=== PATIENT | female | born 1990 | race Caucasian/White ===

== ENCOUNTER → 2016-10-27 | Day surgery (SDC) | payer OTHER ==
[~2016-10-27] VITALS: Ht 157.4 cm; Wt 92.5 kg
[~2016-10-27] MED LIST: ACULAR 3ML 3 ML5 ML OPH; ALBUTEROL0.09 MG/A1 INH; AMERGE2.5 MG PO; AMOXICILLIN500 MG PO; ANAPROX DS550 MG PO; ANTIBIOTIC; AUGMENTIN 875 M1 TAB PO; BACTRIM DS 8001 TA1 PO; BACTROBAN CREAM15 GM T; BIAXIN500 MG PO; BIRTH CONTROL IMPLAN; BLOOD PRESSURE MED PO; BLOOD PRESSURE PILL; BUSPAR5 MG PO; CELEXA20 MG PO; CIPRO250 MG PO; CIPRO500 MG PO; CIPRODEX 0.3%-7.5 ML OT; CIPROFLOXACIN500 MG PO; CLEOCIN150 MG PO; DEPO PROVER150 MG/M1 IM; DEPRESSION MED; DO NOT PROFILE T1 EA; FLEXERIL10 MG PO; FLONASE0.05 MG/AC NS; GRALISE300 M1 PO; HYDROCODONE BIT1 T11 PO; IMITREX100 MG PO; KEFLEX500 MG PO; LOTRIMIN1% TP; MACROBID100 M1 PO; MAXALT10 MG PO; MEDROL DOSEPAK4 MG PO; MOTRIN800 MG PO; NAPROSYN500 MG PO; NEURONTIN600 MG PO; NKHM; NKHM PO; NORCO 325 MG-51 TAB PO; NORCO 5-325 TA1 EACH PO; OFLOXACIN OTIC5 ML OT; OMEPRAZOLE40 MG PO; Orphenadrine C100 MG PO; PEN-VEE K500 MG PO; PEPTO-BISMOL262 M1; PERCOCET 325 MG1 TA4 PO; PERCOCET 325 MG1 TA7 PO; PHENERGAN25 M1 PO; PHENERGAN25 M3 PO; PREDNISONE10 MG PO; PRILOSEC20 M1 PO; PROVENTIL0.09 MG/AC IH; PYRIDIUM200 MG PO; ROBAXIN-750750 MG PO; SKYLA1 EACH IY; STOMACH MED; TESSALON PERLE200 MG PO; TOBREX OPHTH S2.5 ML OPH; TORADOL10 MG PO; TRAMADOL HCL50 MG PO; ULTRAM50 MG PO; VENTOLIN H0.09 MG/AC INH; VERELAN SR 240240 MG PO; VIBRA-TAB100 MG PO; VOLTAREN50 M1 PO; ZANTAC150 MG PO; ZITHROMAX Z PA250 MG PO; ZITHROMAX Z-PA250 MG PO; ZITHROMAX250 MG PO; ZOFRAN ODT4 MG SL; ZOFRAN ODT8 MG PO; ZOFRAN4 MG PO; ZYRTEC10 M1 PO; Zofran4 MG PO
--- NOTE | ~2016-10-27 | O ---
[place], [place] OPERATIVE NOTE NAME: CECI BARRIOS UNIT #: [id number] ROOM: DOCTOR: DIA SALAS MD BIRTHDATE: [birth year] DOS: 10/27/2016 GASTROENDOSCOPIC REPORT SUBJECTIVE: The patient is a 26-year-old who has presented with chief complaint of epigastric distress, nausea, vomiting. ALLERGIES: No known medication. FAMILY HISTORY: Father with colonic carcinoma. PAST SURGICAL HISTORY: Lower back pain and back surgery, tonsillectomy, adenoidectomy, wisdom teeth extraction. PAST MEDICAL HISTORY: Diabetes, gastritis. SOCIAL HISTORY: Nonsmoker, nonalcohol consumer; however, drinking 2 carbonated soda per day. PROCEDURE: Today's procedure part of investigation is panendoscopy plus biopsy. PREMEDICATION: Versed and Diprivan. SCOPE: Olympus forward-viewing gastroscope Q10 video. REPORT: After putting the patient in the left lateral position and after application of lubricant to the scope, the scope was introduced. Thereafter, under direct visualization, I advanced through the length of the esophagus without difficulty. Esophagus cervicothoracic distally carefully examined. Distal esophagitis and distal esophageal small ulcer was noticed. Small hiatal hernia identified. Gastric pouch was entered. Mild gastritis seen. Antrum was biopsied for H. pylori. Duodenal bulb, second and third part within normal limits. The patient extubated, tolerated procedure well. IMPRESSION: Distal esophageal ulcerations, small hiatal hernia, gastritis. PLAN AND DISCUSSION: We are going to start the patient on omeprazole 40 mg 1 every day, antireflux measures with elevation of the head of the bed 6 inches all time. This patient is known to be on pain medication, which would hinder gastric motility as well. Advised to be judgmental about the use of her pain medication. Follow up routinely with you in office, p.r.n. visit with us in [facility]. I thank you very much indeed for your kind referral. [place], [place] OPERATIVE NOTE NAME: CECI BARRIOS UNIT #: [id number] ROOM: DOCTOR: DIA SALAS MD BIRTHDATE: [birth year] DIA SALAS MD CM:WENDIORD:OPERATIVE NOTE 1022 1100 ESTEFANÍA SALAS MD 10/27/16 1100 interface
[2016-10-27 09:04] VITALS: BP 132/89
[2016-10-27 10:20] VITALS: BP 103/59
[2016-10-27 10:35] VITALS: BP 111/73
[2016-10-27 10:50] VITALS: BP 135/88
== END | disposition home or self-care (01) ==
LOC: SDC 10-22 08:00
DX: K29.50 Unspecified chronic gastritis without bleeding (principal); K22.10 Ulcer of esophagus without bleeding; K44.9 Diaphragmatic hernia without obstruction or gangrene; E11.9 Type 2 diabetes mellitus without complications; Z80.0 Family history of malignant neoplasm of digestive organs; J45.909 Unspecified asthma, uncomplicated; F41.9 Anxiety disorder, unspecified; F32.9 Major depressive disorder, single episode, unspecified; G43.909 Migraine, unspecified, not intractable, without status migrainosus; M41.9 Scoliosis, unspecified; Z82.49 Family history of ischemic heart disease and other diseases of the circulatory system; Z82.3 Family history of stroke; Z83.3 Family history of diabetes mellitus

== ENCOUNTER 2018-02-07 10:36 | Emergency (ER) | payer OTHER ==
[~2018-02-07] VITALS: Ht 157.4 cm; Wt 87.5 kg
[2018-02-07 11:00] LABS: BASO # 0.1 10*3/uL (0.0-0.1); BASO % 0.5 % (0.0-1.0); EOS % 0.3 % (1.0-4.0); HEMATOCRIT 41.8 % (37.0-47.0); HEMOGLOBIN 13.3 g/dl (12.0-16.0); LYMPH # 1.7 10*3/uL (1.3-4.4); LYMPH % 13.1 % (27.0-41.0); MEAN CELL VOLUME 87.4 fl (81.0-99.0); MEAN CORPUSCULAR HGB 27.8 pg (27.0-31.0); MEAN CORPUSCULAR HGB CONC 31.8 g/dl (33.0-37.0); MEAN PLATELET VOLUME 8.5 fl (9.6-12.3); MONO # 0.5 10*3/uL (0.1-1.0); MONO % 4.3 % (3.0-9.0); NEUT # 10.3 10*3/uL (2.3-7.9); NEUT % 81.6 % (47.0-73.0); PLATELET COUNT AUTOMATED 452 10*3/uL (130-400); RED BLOOD COUNT 4.78 10*6/uL (4.10-5.10); RED CELL DISTRI WIDTH 14.4 % (0-14.5); WHITE BLOOD COUNT 12.6 10*3/uL (4.8-10.8)
[2018-02-07 11:10] LABS: ACT PARTIAL THROMBO TIME 25.9 SECONDS (20.8-31.5); INTERNATIONAL NORM RATIO 1.1 (2.0-3.5)
[2018-02-07 11:11] LABS: BILIRUBIN NEGATIVE (NEGATIVE); BLOOD NEGATIVE (NEGATIVE); CLARITY SL CLOUDY (CLEAR); COLOR YELLOW (YELLOW); GLUCOSE NEGATIVE (NEGATIVE); KETONE NEGATIVE (NEGATIVE); LEUKO ESTERASE NEGATIVE (NEGATIVE); NITRITE NEGATIVE (NEGATIVE); SPECIFIC GRAVITY >= 1.030 (1.005-1.030); UROBILINOGEN 0.2 E.U./dl (0.2-1.0)
[2018-02-07 11:15] LABS: ALKALINE PHOSPHATASE 87 U/L (45-117); BUN 6 mg/dl (7-24); CHLORIDE 108 mmol/L (98-107); CREATININE 0.87 mg/dL (0.55-1.02); LIPASE 146 U/L (73-393); SGOT/AST 7 IU/L (3-35); SGPT/ALT 15 U/L (12-78); SODIUM 139 mmol/L (136-145); TOTAL PROTEIN 8.2 gm/dL (6.4-8.2)
[2018-02-07 11:21] LABS: BACTERIA TRACE; EPITHELIAL CELLS 16-20; RBC 0-2 rbc/hpf (0-2); WBC 16-20 wbc/hpf (0-5)
[2018-02-07] MEDS ORDERED: Zofran4 MG SL (13:07)
[2018-02-07] MEDS ORDERED: MIRALAX17 GM PO (13:07)
[2018-03-07] MEDS ORDERED: AMBIEN10 M1 PO (14:28)
[2018-03-08] MEDS ORDERED: Zofran4 MG SL (16:09)
[2018-03-08] MEDS ORDERED: NORCO 5-325 TA1 EACH PO (16:09)
== END 2018-02-07 13:45 | disposition home or self-care (01) ==
LOC: ED 10:36
PROVIDERS: Nurse Practitioner Family
DX: R10.32 Left lower quadrant pain (principal); K59.00 Constipation, unspecified; Z79.899 Other long term (current) drug therapy

== ENCOUNTER 2018-06-16 15:50 | Emergency (ER) | payer OTHER ==
[~2018-06-16] VITALS: Ht 157.4 cm; Wt 89.8 kg
[~2018-06-16 15:50] MED LIST changes: +AMBIEN10 M1 PO; +MIRALAX17 GM PO; +Zofran4 MG SL
[2018-06-16] MEDS ORDERED: NAPROSYN500 MG PO (16:05)
[2018-06-16] MEDS ORDERED: CHLORZOXAZONE500 M2 PO (16:05)
== END 2018-06-16 17:14 | disposition home or self-care (01) ==
LOC: ED 15:50
DX: S13.9XXA Sprain of joints and ligaments of unspecified parts of neck, initial encounter (principal); S70.01XA Contusion of right hip, initial encounter; K21.9 Gastro-esophageal reflux disease without esophagitis; I10 Essential (primary) hypertension; E66.9 Obesity, unspecified; Z79.899 Other long term (current) drug therapy; W01.0XXA Fall on same level from slipping, tripping and stumbling without subsequent striking against object, initial encounter; Y93.89 Activity, other specified; Y92.89 Other specified places as the place of occurrence of the external cause; Y99.8 Other external cause status

== ENCOUNTER 2018-07-05 12:24 | Emergency (ER) | payer OTHER ==
[~2018-07-05] VITALS: Ht 157.4 cm; Wt 89.8 kg
[~2018-07-05 12:24] MED LIST changes: +CHLORZOXAZONE500 M2 PO
[2018-07-05 13:20] LABS: BASO % 0.3 % (0.0-1.0); EOS % 0.1 % (1.0-4.0); HEMATOCRIT 40.2 % (37.0-47.0); HEMOGLOBIN 12.8 g/dl (12.0-16.0); LYMPH # 1.7 10*3/uL (1.3-4.4); MEAN CELL VOLUME 84.1 fl (81.0-99.0); MEAN CORPUSCULAR HGB 26.8 pg (27.0-31.0); MEAN CORPUSCULAR HGB CONC 31.8 g/dl (33.0-37.0); MONO # 0.8 10*3/uL (0.1-1.0); MONO % 4.9 % (3.0-9.0); NEUT # 12.8 10*3/uL (2.3-7.9); NEUT % 83.2 % (47.0-73.0); PLATELET COUNT AUTOMATED 579 10*3/uL (130-400); RED BLOOD COUNT 4.78 10*6/uL (4.10-5.10); RED CELL DISTRI WIDTH 14.7 % (0-14.5); WHITE BLOOD COUNT 15.3 10*3/uL (4.8-10.8)
[2018-07-05 13:34] LABS: ALBUMIN 3.6 gm/dl (3.1-4.5); ALKALINE PHOSPHATASE 100 U/L (45-117); BUN 9 mg/dl (7-24); CHLORIDE 113 mmol/L (98-107); CREATININE 1.12 mg/dL (0.55-1.02); LIPASE 94 U/L (73-393); POTASSIUM 3.2 mmol/L (3.5-5.1); SGOT/AST 12 IU/L (3-35); SGPT/ALT 29 U/L (12-78); SODIUM 142 mmol/L (136-145); TOTAL PROTEIN 8.1 gm/dL (6.4-8.2)
[2018-07-05 15:06] LABS: BILIRUBIN NEGATIVE (NEGATIVE); BLOOD NEGATIVE (NEGATIVE); CLARITY SL CLOUDY (CLEAR); COLOR YELLOW (YELLOW); GLUCOSE NEGATIVE (NEGATIVE); KETONE NEGATIVE (NEGATIVE); LEUKO ESTERASE TRACE (NEGATIVE); NITRITE NEGATIVE (NEGATIVE); UROBILINOGEN 0.2 E.U./dl (0.2-1.0)
[2018-07-05 15:23] LABS: BACTERIA TRACE; EPITHELIAL CELLS 16-20; MUCOUS TRACE; WBC 21-30 wbc/hpf (0-5)
[2018-07-05] MEDS ORDERED: ZOFRAN4 MG PO (15:31)
== END 2018-07-05 15:50 | disposition home or self-care (01) ==
LOC: ED 12:24
PROVIDERS: Nurse Practitioner Family
DX: K52.9 Noninfective gastroenteritis and colitis, unspecified (principal); E87.6 Hypokalemia; R51 Headache; R50.9 Fever, unspecified; Z79.899 Other long term (current) drug therapy

== ENCOUNTER 2018-08-01 20:51 | Emergency (ER) | payer OTHER ==
[~2018-08-01] VITALS: Ht 157.4 cm; Wt 92.5 kg
[2018-08-01] MEDS ORDERED: ANAPROX DS550 MG PO (21:14)
[2018-08-01] MEDS ORDERED: CLINDAMYCIN HC300 MG PO (21:14)
== END 2018-08-01 21:28 | disposition home or self-care (01) ==
LOC: ED 20:51
DX: K08.89 Other specified disorders of teeth and supporting structures (principal); Z88.5 Allergy status to narcotic agent; Z79.899 Other long term (current) drug therapy

== ENCOUNTER 2018-08-20 15:04 | Emergency (ER) | payer OTHER ==
[~2018-08-20] VITALS: Ht 157.4 cm; Wt 92.5 kg
[~2018-08-20 15:04] MED LIST changes: +CLINDAMYCIN HC300 MG PO
[2018-08-20] MEDS ORDERED: AMOXICILLIN500 M2 PO (17:23)
[2018-08-20] MEDS ORDERED: PREDNISONE50 MG PO (17:23)
== END 2018-08-20 17:29 | disposition home or self-care (01) ==
LOC: ED 15:04
DX: J20.9 Acute bronchitis, unspecified (principal); Z88.6 Allergy status to analgesic agent; Z79.899 Other long term (current) drug therapy

== ENCOUNTER 2019-01-04 11:26 | Emergency (ER) | payer OTHER ==
[~2019-01-04] VITALS: Ht 157.4 cm; Wt 102.1 kg
[~2019-01-04 11:26] MED LIST changes: +AMOXICILLIN500 M2 PO; +PREDNISONE50 MG PO
[2019-01-04] MEDS ORDERED: IBUPROFEN600 MG PO (12:48)
[2019-01-04] MEDS ORDERED: CEPHALEXIN500 M1 PO (12:48)
== END 2019-01-04 12:55 | disposition home or self-care (01) ==
LOC: ED 11:26
DX: L60.0 Ingrowing nail (principal); L03.032 Cellulitis of left toe; Z88.5 Allergy status to narcotic agent; Z79.899 Other long term (current) drug therapy

== ENCOUNTER 2019-01-18 10:31 | Emergency (ER) | payer OTHER ==
[~2019-01-18] VITALS: Ht 157.4 cm; Wt 99.8 kg
[~2019-01-18 10:31] MED LIST changes: +CEPHALEXIN500 M1 PO; +IBUPROFEN600 MG PO
[2019-01-18] MEDS ORDERED: ZOFRAN4 MG PO (11:25)
[2019-01-18] MEDS ORDERED: AMOXICILLIN500 M2 PO (11:25)
== END 2019-01-18 11:38 | disposition home or self-care (01) ==
LOC: ED 10:31
DX: H66.91 Otitis media, unspecified, right ear (principal); H92.02 Otalgia, left ear; R11.2 Nausea with vomiting, unspecified; Z79.899 Other long term (current) drug therapy; Z88.1 Allergy status to other antibiotic agents; Z88.6 Allergy status to analgesic agent

== ENCOUNTER 2020-01-09 11:15 | Emergency (ER) | payer OTHER ==
[~2020-01-09] VITALS: Ht 157.4 cm; Wt 84.4 kg
[2020-01-09 15:50] LABS: BASO # 0.1 10*3/uL (0.0-0.1); BASO % 0.6 % (0.0-1.0); EOS % 0.2 % (1.0-4.0); HEMATOCRIT 38.8 % (37.0-47.0); LYMPH # 1.8 10*3/uL (1.3-4.4); LYMPH % 19.8 % (27.0-41.0); MEAN CELL VOLUME 85.7 fl (81.0-99.0); MEAN CORPUSCULAR HGB 25.6 pg (27.0-31.0); MEAN CORPUSCULAR HGB CONC 29.9 g/dl (33.0-37.0); MEAN PLATELET VOLUME 9.9 fl (9.6-12.3); MONO # 0.5 10*3/uL (0.1-1.0); MONO % 5.8 % (3.0-9.0); NEUT # 6.6 10*3/uL (2.3-7.9); NEUT % 73.3 % (47.0-73.0); PLATELET COUNT AUTOMATED 473 10*3/uL (130-400); RED BLOOD COUNT 4.53 10*6/uL (4.10-5.10); RED CELL DISTRI WIDTH 15.8 % (0-14.5)
[2020-01-09 16:06] LABS: ALBUMIN 4.1 gm/dl (3.1-4.5); ALKALINE PHOSPHATASE 75 U/L (45-117); BUN 14 mg/dl (7-24); CHLORIDE 108 mmol/L (98-107); CREATININE 0.86 mg/dL (0.55-1.02); LIPASE 66 U/L (73-393); POTASSIUM 3.3 mmol/L (3.5-5.1); SGOT/AST 8 IU/L (3-35); SGPT/ALT 12 U/L (12-78); SODIUM 139 mmol/L (136-145); TOTAL PROTEIN 8.1 gm/dL (6.4-8.2)
[2020-01-09 17:10] LABS: BILIRUBIN 2+ (NEGATIVE); CLARITY SL CLOUDY (CLEAR); COLOR YELLOW (YELLOW); GLUCOSE NEGATIVE (NEGATIVE); KETONE 2+ (NEGATIVE)
[2020-01-09 17:11] LABS: BLOOD 2+ (NEGATIVE); LEUKO ESTERASE NEGATIVE (NEGATIVE); NITRITE NEGATIVE (NEGATIVE)
[2020-01-09 17:16] LABS: EPITHELIAL CELLS 21-30; RBC 31-40 rbc/hpf (0-2); WBC 31-40 wbc/hpf (0-5)
[2020-01-09 17:17] LABS: YEAST 3+
[2020-01-09] MEDS ORDERED: CIPRO500 MG PO (18:15)
[2020-01-09] MEDS ORDERED: PYRIDIUM200 M1 PO (18:15)
== END 2020-01-09 18:32 | disposition home or self-care (01) ==
LOC: ED 11:15
PROVIDERS: Physician Assistant
DX: N12 Tubulo-interstitial nephritis, not specified as acute or chronic (principal); Z88.8 Allergy status to other drugs, medicaments and biological substances; Z79.899 Other long term (current) drug therapy

== ENCOUNTER 2020-02-23 11:51 | Emergency (ER) | payer OTHER ==
[~2020-02-23] VITALS: Wt 82.1 kg
[~2020-02-23 11:51] MED LIST changes: +PYRIDIUM200 M1 PO
[2020-02-23] MEDS ORDERED: VIBRAMYCIN100 MG PO (13:43)
[2020-02-23] MEDS ORDERED: TESSALON PERLE100 MG PO (13:43)
== END 2020-02-23 13:55 | disposition home or self-care (01) ==
LOC: ED 11:51
DX: J40 Bronchitis, not specified as acute or chronic (principal); Z88.8 Allergy status to other drugs, medicaments and biological substances; Z79.899 Other long term (current) drug therapy; Z88.5 Allergy status to narcotic agent

== ENCOUNTER 2020-04-27 09:57 | Emergency (ER) | payer OTHER ==
[~2020-04-27] VITALS: Ht 157.4 cm; Wt 87.5 kg
[~2020-04-27 09:57] MED LIST changes: +TESSALON PERLE100 MG PO; +VIBRAMYCIN100 MG PO
[2020-04-27 10:36] LABS: BASO % 0.3 % (0.0-1.0); HEMATOCRIT 32.5 % (37.0-47.0); LYMPH # 1.3 10*3/uL (1.3-4.4); LYMPH % 11.5 % (27.0-41.0); MEAN CELL VOLUME 80.4 fl (81.0-99.0); MEAN CORPUSCULAR HGB 23.8 pg (27.0-31.0); MEAN CORPUSCULAR HGB CONC 29.5 g/dl (33.0-37.0); MEAN PLATELET VOLUME 8.8 fl (9.6-12.3); MONO # 0.5 10*3/uL (0.1-1.0); MONO % 4.8 % (3.0-9.0); NEUT # 9.1 10*3/uL (2.3-7.9); PLATELET COUNT AUTOMATED 468 10*3/uL (130-400); RED BLOOD COUNT 4.04 10*6/uL (4.10-5.10); RED CELL DISTRI WIDTH 14.9 % (0-14.5); WHITE BLOOD COUNT 10.9 10*3/uL (4.8-10.8)
[2020-04-27 10:52] LABS: BILIRUBIN Negative (Negative); BLOOD Negative (Negative); CLARITY Cloudy (Clear); COLOR Dark Yellow (Yellow); GLUCOSE Negative (Negative); KETONE 1+ (Negative); LEUKO ESTERASE Trace (Negative); NITRITE Negative (Negative); SPECIFIC GRAVITY >= 1.030 (1.001-1.030)
[2020-04-27 10:52] LABS: ALBUMIN 3.6 gm/dl (3.1-4.5); ALKALINE PHOSPHATASE 77 U/L (45-117); BUN 7 mg/dl (7-24); CHLORIDE 111 mmol/L (98-107); CREATININE 0.83 mg/dL (0.55-1.02); LIPASE 68 U/L (73-393); POTASSIUM 3.5 mmol/L (3.5-5.1); SGOT/AST 9 IU/L (3-35); SGPT/ALT 21 U/L (12-78); SODIUM 141 mmol/L (136-145); TOTAL PROTEIN 7.6 gm/dL (6.4-8.2)
[2020-04-27 11:04] LABS: BACTERIA 2+; EPITHELIAL CELLS 21-30
[2020-04-27 11:05] LABS: MUCOUS 3+
== END 2020-04-27 16:08 | disposition home or self-care (01) ==
LOC: ED 09:57
PROVIDERS: Nurse Practitioner Family
DX: R10.31 Right lower quadrant pain (principal); Z20.828 Contact with and (suspected) exposure to other viral communicable diseases; R50.9 Fever, unspecified; R19.7 Diarrhea, unspecified; K21.9 Gastro-esophageal reflux disease without esophagitis; I10 Essential (primary) hypertension; E66.9 Obesity, unspecified; Z88.1 Allergy status to other antibiotic agents; Z88.6 Allergy status to analgesic agent; Z79.899 Other long term (current) drug therapy

== ENCOUNTER 2020-09-07 11:26 | Emergency (ER) | payer OTHER ==
[~2020-09-07] VITALS: Wt 93.0 kg
[2020-09-07 11:50] LABS: BASO % 0.3 % (0.0-1.0); EOS % 0.1 % (1.0-4.0); HEMATOCRIT 39.4 % (37.0-47.0); MEAN CELL VOLUME 82.8 fl (81.0-99.0); MEAN CORPUSCULAR HGB CONC 30.2 g/dl (33.0-37.0); MEAN PLATELET VOLUME 9.8 fl (9.6-12.3); MONO # 0.3 10*3/uL (0.1-1.0); MONO % 3.3 % (3.0-9.0); NEUT # 7.4 10*3/uL (2.3-7.9); NEUT % 85.1 % (47.0-73.0); PLATELET COUNT AUTOMATED 431 10*3/uL (130-400); RED BLOOD COUNT 4.76 10*6/uL (4.10-5.10); RED CELL DISTRI WIDTH 17.4 % (0-14.5); WHITE BLOOD COUNT 8.7 10*3/uL (4.8-10.8)
[2020-09-07 12:10] LABS: ALKALINE PHOSPHATASE 67 U/L (45-117); BUN 9 mg/dl (7-24); CHLORIDE 109 mmol/L (98-107); CREATININE 0.66 mg/dL (0.55-1.02); LIPASE 69 U/L (73-393); POTASSIUM 3.4 mmol/L (3.5-5.1); SGOT/AST 6 IU/L (3-35); SGPT/ALT 16 U/L (12-78); SODIUM 141 mmol/L (136-145); TOTAL PROTEIN 7.6 gm/dL (6.4-8.2)
[2020-09-07 12:10] LABS: BILIRUBIN Negative (Negative); BLOOD Negative (Negative); CLARITY Cloudy (Clear); COLOR Yellow (Yellow); GLUCOSE Negative (Negative); KETONE 1+ (Negative); LEUKO ESTERASE 2+ (Negative); NITRITE Negative (Negative); SPECIFIC GRAVITY 1.025 (1.001-1.030)
[2020-09-07 12:13] LABS: PH 8.5 (4.5-8.0)
[2020-09-07 12:20] LABS: BACTERIA 2+; EPITHELIAL CELLS 51-100; MUCOUS 2+; WBC 21-30 wbc/hpf (0-5)
[2020-09-07] MEDS ORDERED: MACROBID100 M1 PO (13:47)
[2020-09-07] MEDS ORDERED: ZOFRAN4 MG PO (13:47)
== END 2020-09-07 13:53 | disposition home or self-care (01) ==
LOC: ED 11:26
PROVIDERS: Emergency Medicine
DX: N39.0 Urinary tract infection, site not specified (principal); R11.2 Nausea with vomiting, unspecified; K21.9 Gastro-esophageal reflux disease without esophagitis; I10 Essential (primary) hypertension; F32.9 Major depressive disorder, single episode, unspecified; E66.9 Obesity, unspecified; Z90.49 Acquired absence of other specified parts of digestive tract; Z88.1 Allergy status to other antibiotic agents; Z88.5 Allergy status to narcotic agent; Z79.2 Long term (current) use of antibiotics; Z79.899 Other long term (current) drug therapy; Z90.89 Acquired absence of other organs; Z98.890 Other specified postprocedural states

== ENCOUNTER 2020-09-17 09:34 | Emergency (ER) | payer OTHER ==
[~2020-09-17] VITALS: Wt 86.6 kg
[2020-09-17 10:01] LABS: BASO # 0.1 10*3/uL (0.0-0.1); BASO % 0.6 % (0.0-1.0); EOS # 0.1 10*3/uL (0.0-0.4); EOS % 0.9 % (1.0-4.0); HEMATOCRIT 39.3 % (37.0-47.0); LYMPH # 1.9 10*3/uL (1.3-4.4); LYMPH % 19.4 % (27.0-41.0); MEAN CELL VOLUME 81.9 fl (81.0-99.0); MEAN CORPUSCULAR HGB 25.6 pg (27.0-31.0); MEAN CORPUSCULAR HGB CONC 31.3 g/dl (33.0-37.0); MONO # 0.7 10*3/uL (0.1-1.0); MONO % 7.5 % (3.0-9.0); NEUT % 71.2 % (47.0-73.0); PLATELET COUNT AUTOMATED 482 10*3/uL (130-400); RED CELL DISTRI WIDTH 17.3 % (0-14.5); WHITE BLOOD COUNT 9.8 10*3/uL (4.8-10.8)
[2020-09-17 10:05] LABS: BILIRUBIN Negative (Negative); BLOOD Negative (Negative); CLARITY Turbid (Clear); COLOR Yellow (Yellow); GLUCOSE Negative (Negative); KETONE Negative (Negative); LEUKO ESTERASE 2+ (Negative); NITRITE Negative (Negative); UROBILINOGEN 0.2 E.U./dl (0.0-1.0)
[2020-09-17 10:11] LABS: EPITHELIAL CELLS TNTC
[2020-09-17 10:12] LABS: BACTERIA 2+; RBC 0-2 rbc/hpf (0-2)
[2020-09-17 10:18] LABS: ALKALINE PHOSPHATASE 76 U/L (45-117); BUN 11 mg/dl (7-24); CHLORIDE 106 mmol/L (98-107); CREATININE 0.94 mg/dL (0.55-1.02); LIPASE 125 U/L (73-393); SGOT/AST 23 IU/L (3-35); SGPT/ALT 19 U/L (12-78); SODIUM 139 mmol/L (136-145)
[2020-09-17] MEDS ORDERED: CIPRO500 MG PO (12:28)
== END 2020-09-17 10:37 | disposition home or self-care (01) ==
LOC: ED 09:34
PROVIDERS: Emergency Medicine
DX: N39.0 Urinary tract infection, site not specified (principal); Z88.8 Allergy status to other drugs, medicaments and biological substances; Z79.899 Other long term (current) drug therapy; Z98.890 Other specified postprocedural states

== ENCOUNTER → 2020-10-08 | Outpatient (CLI) | payer OTHER ==
[2020-10-08 17:09] LABS: BILIRUBIN Negative (Negative); BLOOD 1+ (Negative); CLARITY Cloudy (Clear); COLOR Yellow (Yellow); GLUCOSE Negative (Negative); HEMATOCRIT 38.8 % (37.0-47.0); KETONE Negative (Negative); LEUKO ESTERASE 2+ (Negative); MEAN CELL VOLUME 82.9 fl (81.0-99.0); MEAN CORPUSCULAR HGB 25.6 pg (27.0-31.0); MEAN CORPUSCULAR HGB CONC 30.9 g/dl (33.0-37.0); MEAN PLATELET VOLUME 9.4 fl (9.6-12.3); NITRITE Negative (Negative); PH 7.5 (4.5-8.0); PLATELET COUNT AUTOMATED 438 10*3/uL (130-400); RED BLOOD COUNT 4.68 10*6/uL (4.10-5.10); RETICULOCYTE % 0.99 % (0.50-2.50); UROBILINOGEN 0.2 E.U./dl (0.0-1.0); WHITE BLOOD COUNT 8.4 10*3/uL (4.8-10.8)
[2020-10-08 17:21] LABS: EPITHELIAL CELLS TNTC
[2020-10-08 17:27] LABS: ALBUMIN 3.9 gm/dl (3.1-4.5); ALKALINE PHOSPHATASE 73 U/L (45-117); BUN 9 mg/dl (7-24); CHLORIDE 109 mmol/L (98-107); CHOLESTEROL 185 mg/dL (<200); CREATININE 0.72 mg/dL (0.55-1.02); GAMMA GLUTAMYL TRANSPEPTIDASE 40 U/L (5-55); LDL CHOLESTEROL 97 mg/dL (9-159); POTASSIUM 3.9 mmol/L (3.5-5.1); SGOT/AST 6 IU/L (3-35); SGPT/ALT 12 U/L (12-78); SODIUM 140 mmol/L (136-145); T3 UPTAKE 32 % (31-39); THYROXINE (T4) TOTAL 6.8 ug/dl (4.8-13.9); TOTAL IRON BINDING CAPACITY 391 ug/dl (250-450); TOTAL PROTEIN 7.7 gm/dL (6.4-8.2); TRIGLYCERIDES 208 mg/dl (<150); URIC ACID 4.3 mg/dL (2.6-6.0)
[2020-10-08 17:35] LABS: IRON 27 ug/dL (50-170); THYROID STIM HORMONE (HS) 0.573 uIU/ml (0.358-4.75)
[2020-10-08 17:52] LABS: FERRITIN 7.7 ng/mL (10.0-291.0); VITAMIN D, 25-HYDROXY 27.9 ng/mL (30-100)
[2020-10-08 17:53] LABS: BASOPHILS 3 % (0-1); TOTAL CELLS COUNTED 100 #CELLS
[2020-10-08 17:55] LABS: PLATELET SUFFICIENCY HIGH (NORMAL)
[2020-10-09 06:07] LABS: TOTAL PROTEIN, SERUM 7.2 g/dL (6.0-8.5)
[2020-10-09 08:08] LABS: HEP B CORE AB, IGM Negative (Negative); HEPATITIS B SURFACE AG Negative (Negative); HEPATITIS C VIRUS ANTIBODY <0.1 s/co (0.0-0.9); RHEUMATOID ARTHRITIS FACTOR <10.0 IU/mL (0.0-13.9)
[2020-10-09 12:07] LABS: ANTI-DSDNA ANTIBODIES 1 IU/mL (0-9)
[2020-10-09 14:08] LABS: A/G RATIO 1.4 (0.7-1.7); ALBUMIN 4.2 g/dL (2.9-4.4); ALPHA-1-GLOBULIN 0.2 g/dL (0.0-0.4); ALPHA-2-GLOBULIN 0.8 g/dL (0.4-1.0); M-SPIKE Not Observed g/dL (Not Observed)
== END | disposition home or self-care (01) ==
LOC: LAB 16:41
PROVIDERS: ATTEND Family Medicine
DX: E78.5 Hyperlipidemia, unspecified (principal); R53.83 Other fatigue; E55.9 Vitamin D deficiency, unspecified; R79.89 Other specified abnormal findings of blood chemistry

== ENCOUNTER 2020-10-27 14:03 | Emergency (ER) | payer OTHER ==
[~2020-10-27] VITALS: Ht 157.5 cm; Wt 84.4 kg
[2020-10-27 15:43] LABS: BASO # 0.1 10*3/uL (0.0-0.1); BASO % 0.4 % (0.0-1.0); EOS % 0.2 % (1.0-4.0); HEMATOCRIT 43.5 % (37.0-47.0); LYMPH # 1.3 10*3/uL (1.3-4.4); LYMPH % 8.4 % (27.0-41.0); MEAN CELL VOLUME 84.6 fl (81.0-99.0); MEAN CORPUSCULAR HGB 26.1 pg (27.0-31.0); MEAN CORPUSCULAR HGB CONC 30.8 g/dl (33.0-37.0); MEAN PLATELET VOLUME 9.2 fl (9.6-12.3); MONO # 0.7 10*3/uL (0.1-1.0); MONO % 4.2 % (3.0-9.0); NEUT # 13.4 10*3/uL (2.3-7.9); NEUT % 86.4 % (47.0-73.0); PLATELET COUNT AUTOMATED 590 10*3/uL (130-400); RED BLOOD COUNT 5.14 10*6/uL (4.10-5.10); RED CELL DISTRI WIDTH 15.9 % (0-14.5); WHITE BLOOD COUNT 15.4 10*3/uL (4.8-10.8)
[2020-10-27 15:44] LABS: BILIRUBIN Negative (Negative); BLOOD 3+ (Negative); CLARITY Cloudy (Clear); COLOR Red (Yellow); GLUCOSE Negative (Negative); KETONE 4+ (Negative); LEUKO ESTERASE 1+ (Negative); NITRITE Negative (Negative); SPECIFIC GRAVITY 1.025 (1.001-1.030); UROBILINOGEN 0.2 E.U./dl (0.0-1.0)
[2020-10-27 16:02] LABS: RBC TNTC rbc/hpf (0-2)
[2020-10-27 16:07] LABS: ALBUMIN 3.8 gm/dl (3.1-4.5); ALKALINE PHOSPHATASE 88 U/L (45-117); BUN 5 mg/dl (7-24); CHLORIDE 110 mmol/L (98-107); CREATININE 0.68 mg/dL (0.55-1.02); LIPASE 64 U/L (73-393); POTASSIUM 3.6 mmol/L (3.5-5.1); SGOT/AST 9 IU/L (3-35); SGPT/ALT 25 U/L (12-78); SODIUM 138 mmol/L (136-145); TOTAL PROTEIN 8.7 gm/dL (6.4-8.2)
[2020-10-27] MEDS ORDERED: ZOFRAN4 MG PO (17:10)
== END 2020-10-27 17:16 | disposition home or self-care (01) ==
LOC: ED 14:03
PROVIDERS: Physician Assistant
DX: K52.9 Noninfective gastroenteritis and colitis, unspecified (principal); E86.0 Dehydration; R11.2 Nausea with vomiting, unspecified; Z90.49 Acquired absence of other specified parts of digestive tract; Z98.51 Tubal ligation status; Z88.1 Allergy status to other antibiotic agents; Z88.5 Allergy status to narcotic agent; Z79.2 Long term (current) use of antibiotics; Z79.899 Other long term (current) drug therapy; Z90.89 Acquired absence of other organs

== ENCOUNTER 2020-10-31 01:10 | Emergency (ER) | payer OTHER ==
[~2020-10-31] VITALS: Ht 157.4 cm; Wt 84.4 kg
[2020-10-31 02:11] LABS: BASO # 0.1 10*3/uL (0.0-0.1); BASO % 0.6 % (0.0-1.0); EOS % 0.2 % (1.0-4.0); HEMATOCRIT 37.3 % (37.0-47.0); LYMPH # 1.4 10*3/uL (1.3-4.4); LYMPH % 15.5 % (27.0-41.0); MEAN CELL VOLUME 82.9 fl (81.0-99.0); MEAN CORPUSCULAR HGB CONC 31.4 g/dl (33.0-37.0); MEAN PLATELET VOLUME 9.6 fl (9.6-12.3); MONO # 0.5 10*3/uL (0.1-1.0); NEUT % 78.5 % (47.0-73.0); PLATELET COUNT AUTOMATED 531 10*3/uL (130-400); RED CELL DISTRI WIDTH 15.9 % (0-14.5)
[2020-10-31 02:17] LABS: BILIRUBIN Negative (Negative); BLOOD 3+ (Negative); CLARITY Cloudy (Clear); COLOR Yellow (Yellow); GLUCOSE Negative (Negative); KETONE 4+ (Negative); LEUKO ESTERASE 1+ (Negative); NITRITE Negative (Negative); PH 5.5 (4.5-8.0)
[2020-10-31 02:26] LABS: ALBUMIN 3.8 gm/dl (3.1-4.5); ALKALINE PHOSPHATASE 72 U/L (45-117); BUN 5 mg/dl (7-24); CHLORIDE 108 mmol/L (98-107); LIPASE 62 U/L (73-393); POTASSIUM 2.8 mmol/L (3.5-5.1); SGOT/AST 7 IU/L (3-35); SGPT/ALT 17 U/L (12-78); SODIUM 141 mmol/L (136-145); TOTAL PROTEIN 7.6 gm/dL (6.4-8.2)
[2020-10-31 02:46] LABS: BACTERIA 2+; EPITHELIAL CELLS 41-50; RBC 21-30 rbc/hpf (0-2)
[2020-10-31] MEDS ORDERED: CEPHALEXIN500 M1 PO (05:04)
[2020-10-31] MEDS ORDERED: ZOFRAN4 MG PO (05:04)
[2020-10-31] MEDS ORDERED: POTASSIUM CHLO20 ME3 PO (05:04)
[2020-10-31] MEDS ORDERED: TRAMADOL HCL50 MG PO (05:05)
== END 2020-10-31 06:20 | disposition home or self-care (01) ==
LOC: ED 01:10
PROVIDERS: Emergency Medicine
DX: E87.6 Hypokalemia (principal); R10.30 Lower abdominal pain, unspecified; R11.2 Nausea with vomiting, unspecified; Z87.42 Personal history of other diseases of the female genital tract; Z88.1 Allergy status to other antibiotic agents; Z88.5 Allergy status to narcotic agent; Z79.899 Other long term (current) drug therapy; Z98.890 Other specified postprocedural states; Z90.89 Acquired absence of other organs

== ENCOUNTER 2020-11-19 05:11 | Inpatient (IN) | payer OTHER ==
[~2020-11-19] VITALS: Ht 157.4 cm; Wt 80.4 kg
[~2020-11-19 05:11] MED LIST changes: +POTASSIUM CHLO20 ME3 PO
[2020-11-19 05:43] VITALS: BP 132/74
[2020-11-19 06:19] LABS: BASO % 0.3 % (0.0-1.0); EOS # 0.2 10*3/uL (0.0-0.4); EOS % 1.6 % (1.0-4.0); HEMATOCRIT 38.5 % (37.0-47.0); LYMPH # 0.9 10*3/uL (1.3-4.4); LYMPH % 7.4 % (27.0-41.0); MEAN CELL VOLUME 86.7 fl (81.0-99.0); MEAN CORPUSCULAR HGB 26.4 pg (27.0-31.0); MEAN CORPUSCULAR HGB CONC 30.4 g/dl (33.0-37.0); MEAN PLATELET VOLUME 9.1 fl (9.6-12.3); MONO # 1.2 10*3/uL (0.1-1.0); MONO % 9.3 % (3.0-9.0); NEUT # 10.2 10*3/uL (2.3-7.9); NEUT % 80.8 % (47.0-73.0); PLATELET COUNT AUTOMATED 411 10*3/uL (130-400); RED BLOOD COUNT 4.44 10*6/uL (4.10-5.10); RED CELL DISTRI WIDTH 15.7 % (0-14.5); WHITE BLOOD COUNT 12.6 10*3/uL (4.8-10.8)
[2020-11-19 06:35] LABS: ALBUMIN 3.5 gm/dl (3.1-4.5); ALKALINE PHOSPHATASE 85 U/L (45-117); BUN 10 mg/dl (7-24); CHLORIDE 105 mmol/L (98-107); CREATININE 0.73 mg/dL (0.55-1.02); POTASSIUM 3.6 mmol/L (3.5-5.1); SGOT/AST 19 IU/L (3-35); SGPT/ALT 18 U/L (12-78); SODIUM 138 mmol/L (136-145); TOTAL PROTEIN 7.8 gm/dL (6.4-8.2)
[2020-11-19 06:39] LABS: BILIRUBIN Negative (Negative); BLOOD 1+ (Negative); CLARITY Cloudy (Clear); COLOR Yellow (Yellow); GLUCOSE Negative (Negative); KETONE 4+ (Negative); LEUKO ESTERASE 3+ (Negative); NITRITE Negative (Negative)
[2020-11-19 06:51] LABS: BACTERIA 3+; WBC TNTC wbc/hpf (0-5)
[2020-11-19 09:11] VITALS: BP 112/74
[2020-11-19 10:00] VITALS: BP 120/80
[2020-11-19 12:00] VITALS: BP 112/61
[2020-11-19] MEDS ORDERED: DICYCLOMINE HCL10 MG PO (12:38)
[2020-11-19] MEDS ORDERED: GABAPENTIN400 MG PO (12:39)
[2020-11-19] MEDS ORDERED: OMEPRAZOLE40 MG PO (12:43)
[2020-11-19] MEDS ORDERED: VITAMIN D350 MC2 PO (12:43)
[2020-11-19] MEDS ORDERED: Lopressor25 MG PO (13:00)
[2020-11-19 16:00] VITALS: BP 115/76
[2020-11-19 20:00] VITALS: BP 117/66
[2020-11-20 06:58] LABS: BASO # 0.1 10*3/uL (0.0-0.1); BASO % 0.6 % (0.0-1.0); EOS # 0.3 10*3/uL (0.0-0.4); EOS % 3.3 % (1.0-4.0); HEMATOCRIT 34.3 % (37.0-47.0); LYMPH # 1.5 10*3/uL (1.3-4.4); LYMPH % 18.6 % (27.0-41.0); MEAN CELL VOLUME 85.5 fl (81.0-99.0); MEAN CORPUSCULAR HGB 25.9 pg (27.0-31.0); MEAN CORPUSCULAR HGB CONC 30.3 g/dl (33.0-37.0); MEAN PLATELET VOLUME 9.4 fl (9.6-12.3); MONO # 0.9 10*3/uL (0.1-1.0); MONO % 10.9 % (3.0-9.0); NEUT # 5.5 10*3/uL (2.3-7.9); NEUT % 66.2 % (47.0-73.0); PLATELET COUNT AUTOMATED 420 10*3/uL (130-400); RED BLOOD COUNT 4.01 10*6/uL (4.10-5.10); RED CELL DISTRI WIDTH 15.6 % (0-14.5); WHITE BLOOD COUNT 8.3 10*3/uL (4.8-10.8)
[2020-11-20 07:28] LABS: ALBUMIN 2.9 gm/dl (3.1-4.5); ALKALINE PHOSPHATASE 66 U/L (45-117); BUN 6 mg/dl (7-24); CHLORIDE 111 mmol/L (98-107); CHOLESTEROL 179 mg/dL (<200); FREE T4 0.99 ng/dl (0.76-1.46); LDL CHOLESTEROL 114 mg/dL (9-159); SGOT/AST 8 IU/L (3-35); SGPT/ALT 12 U/L (12-78); SODIUM 142 mmol/L (136-145); TOTAL PROTEIN 6.8 gm/dL (6.4-8.2); TRIGLYCERIDES 175 mg/dl (<150)
[2020-11-20 08:00] VITALS: BP 126/84
[2020-11-20 08:28] LABS: VITAMIN D, 25-HYDROXY 29.5 ng/mL (30-100)
== END 2020-11-20 10:49 | disposition home or self-care (01) | DRG 422 ==
LOC: ED 05:11 → EDHOLD 07:07 → 5E 07:07
PROVIDERS: Emergency Medicine; Registered Nurse; ADMIT Internal Medicine; ATTEND Internal Medicine
DX: E86.0 Dehydration (principal); E66.9 Obesity, unspecified; R11.2 Nausea with vomiting, unspecified; R10.9 Unspecified abdominal pain; I10 Essential (primary) hypertension; K21.9 Gastro-esophageal reflux disease without esophagitis; G89.29 Other chronic pain; F32.9 Major depressive disorder, single episode, unspecified; R65.10 Systemic inflammatory response syndrome (SIRS) of non-infectious origin without acute organ dysfunction; K13.79 Other lesions of oral mucosa; Z68.35 Body mass index [BMI] 35.0-35.9, adult; Z88.1 Allergy status to other antibiotic agents; Z88.5 Allergy status to narcotic agent; Z82.5 Family history of asthma and other chronic lower respiratory diseases; Z82.3 Family history of stroke; Z83.3 Family history of diabetes mellitus; Z82.49 Family history of ischemic heart disease and other diseases of the circulatory system; Z80.9 Family history of malignant neoplasm, unspecified; Z79.899 Other long term (current) drug therapy

== ENCOUNTER → 2020-12-16 | Outpatient (CLI) | payer OTHER ==
[~2020-12-16] MED LIST changes: +DICYCLOMINE HCL10 MG PO; +FLAGYL500 MG PO; +GABAPENTIN400 MG PO; +K-TAB20 MEQ PO; +Lopressor25 MG PO; +VITAMIN D350 MC2 PO; +ZOFRAN4 MG SL
== END | disposition home or self-care (01) ==
LOC: US 07:07
PROVIDERS: ATTEND Family Medicine
DX: K76.0 Fatty (change of) liver, not elsewhere classified (principal); N28.1 Cyst of kidney, acquired; N85.8 Other specified noninflammatory disorders of uterus; Z90.49 Acquired absence of other specified parts of digestive tract

== ENCOUNTER 2020-12-22 15:53 | Emergency (ER) | payer OTHER ==
[~2020-12-22] VITALS: Ht 157.4 cm; Wt 83.0 kg
[~2020-12-22 15:53] MED LIST changes: -FLAGYL500 MG PO; -K-TAB20 MEQ PO; -ZOFRAN4 MG SL
[2020-12-22 18:04] LABS: BASO % 0.3 % (0.0-1.0); EOS % 0.2 % (1.0-4.0); HEMATOCRIT 36.6 % (37.0-47.0); LYMPH # 1.1 10*3/uL (1.3-4.4); LYMPH % 9.4 % (27.0-41.0); MEAN CELL VOLUME 85.7 fl (81.0-99.0); MEAN CORPUSCULAR HGB 26.2 pg (27.0-31.0); MEAN CORPUSCULAR HGB CONC 30.6 g/dl (33.0-37.0); MEAN PLATELET VOLUME 9.9 fl (9.6-12.3); MONO # 0.4 10*3/uL (0.1-1.0); MONO % 3.4 % (3.0-9.0); NEUT # 10.1 10*3/uL (2.3-7.9); NEUT % 86.4 % (47.0-73.0); PLATELET COUNT AUTOMATED 417 10*3/uL (130-400); RED BLOOD COUNT 4.27 10*6/uL (4.10-5.10); RED CELL DISTRI WIDTH 15.4 % (0-14.5); WHITE BLOOD COUNT 11.7 10*3/uL (4.8-10.8)
[2020-12-22 18:06] LABS: BILIRUBIN Negative (Negative); BLOOD 2+ (Negative); CLARITY Turbid (Clear); COLOR Yellow (Yellow); GLUCOSE Negative (Negative); KETONE 3+ (Negative); LEUKO ESTERASE 1+ (Negative); NITRITE Negative (Negative); SPECIFIC GRAVITY >= 1.030 (1.001-1.030)
[2020-12-22 18:14] LABS: BACTERIA 3+; EPITHELIAL CELLS TNTC; RBC 0-2 rbc/hpf (0-2)
[2020-12-22 18:19] LABS: ALBUMIN 3.8 gm/dl (3.1-4.5); ALKALINE PHOSPHATASE 86 U/L (45-117); BUN 10 mg/dl (7-24); CHLORIDE 108 mmol/L (98-107); CREATININE 0.61 mg/dL (0.55-1.02); LIPASE 54 U/L (73-393); POTASSIUM 3.8 mmol/L (3.5-5.1); SGOT/AST 17 IU/L (3-35); SGPT/ALT 21 U/L (12-78); SODIUM 139 mmol/L (136-145); TOTAL PROTEIN 7.4 gm/dL (6.4-8.2)
[2020-12-22 18:21] LABS: BETA-HCG, QUANT < 1.0 mIU/mL (1-3)
[2020-12-22] MEDS ORDERED: FLAGYL500 MG PO (21:14)
[2020-12-22] MEDS ORDERED: CIPRO500 MG PO (21:14)
[2020-12-23] MEDS ORDERED: ZOFRAN4 MG SL (09:42)
== END 2020-12-22 21:30 | disposition home or self-care (01) ==
LOC: ED 15:53
PROVIDERS: Emergency Medicine
DX: N39.0 Urinary tract infection, site not specified (principal); K52.9 Noninfective gastroenteritis and colitis, unspecified; R11.2 Nausea with vomiting, unspecified; Z88.1 Allergy status to other antibiotic agents; Z88.5 Allergy status to narcotic agent; Z79.899 Other long term (current) drug therapy; Z90.89 Acquired absence of other organs; Z98.890 Other specified postprocedural states

== ENCOUNTER 2020-12-23 07:35 | Emergency (ER) | payer OTHER ==
[~2020-12-23] VITALS: Ht 157.4 cm; Wt 82.6 kg
[~2020-12-23 07:35] MED LIST changes: +FLAGYL500 MG PO
[2020-12-23 08:13] LABS: BASO # 0.1 10*3/uL (0.0-0.1); BASO % 0.4 % (0.0-1.0); EOS # 0.2 10*3/uL (0.0-0.4); EOS % 1.7 % (1.0-4.0); HEMATOCRIT 35.5 % (37.0-47.0); LYMPH # 1.5 10*3/uL (1.3-4.4); LYMPH % 13.2 % (27.0-41.0); MEAN CELL VOLUME 84.9 fl (81.0-99.0); MEAN CORPUSCULAR HGB 26.1 pg (27.0-31.0); MEAN CORPUSCULAR HGB CONC 30.7 g/dl (33.0-37.0); MEAN PLATELET VOLUME 9.5 fl (9.6-12.3); MONO # 0.6 10*3/uL (0.1-1.0); MONO % 5.6 % (3.0-9.0); NEUT # 8.9 10*3/uL (2.3-7.9); NEUT % 78.8 % (47.0-73.0); PLATELET COUNT AUTOMATED 404 10*3/uL (130-400); RED BLOOD COUNT 4.18 10*6/uL (4.10-5.10); RED CELL DISTRI WIDTH 15.7 % (0-14.5); WHITE BLOOD COUNT 11.3 10*3/uL (4.8-10.8)
[2020-12-23 08:40] LABS: ALBUMIN 3.6 gm/dl (3.1-4.5); ALKALINE PHOSPHATASE 79 U/L (45-117); BUN 9 mg/dl (7-24); CHLORIDE 111 mmol/L (98-107); POTASSIUM 3.1 mmol/L (3.5-5.1); SGOT/AST 20 IU/L (3-35); SGPT/ALT 21 U/L (12-78); SODIUM 137 mmol/L (136-145); TOTAL PROTEIN 7.2 gm/dL (6.4-8.2)
[2020-12-23] MEDS ORDERED: ZOFRAN4 MG SL (09:42)
== END 2020-12-23 09:59 | disposition home or self-care (01) ==
LOC: ED 07:35
PROVIDERS: Student in an Organized Health Care Education/Training Program
DX: K52.9 Noninfective gastroenteritis and colitis, unspecified (principal); R11.2 Nausea with vomiting, unspecified; Z88.1 Allergy status to other antibiotic agents; Z88.5 Allergy status to narcotic agent; Z79.2 Long term (current) use of antibiotics; Z79.899 Other long term (current) drug therapy; Z90.89 Acquired absence of other organs; Z98.890 Other specified postprocedural states

== ENCOUNTER 2020-12-29 09:29 | Emergency (ER) | payer OTHER ==
[~2020-12-29] VITALS: Ht 157.4 cm; Wt 82.1 kg
[~2020-12-29 09:29] MED LIST changes: +ZOFRAN4 MG SL
[2020-12-29 11:05] LABS: BASO # 0.1 10*3/uL (0.0-0.1); BASO % 0.5 % (0.0-1.0); EOS # 0.1 10*3/uL (0.0-0.4); EOS % 0.6 % (1.0-4.0); HEMATOCRIT 37.1 % (37.0-47.0); LYMPH # 1.1 10*3/uL (1.3-4.4); LYMPH % 9.9 % (27.0-41.0); MEAN CELL VOLUME 86.3 fl (81.0-99.0); MEAN CORPUSCULAR HGB CONC 30.2 g/dl (33.0-37.0); MEAN PLATELET VOLUME 10.1 fl (9.6-12.3); MONO # 0.4 10*3/uL (0.1-1.0); MONO % 3.5 % (3.0-9.0); NEUT # 9.2 10*3/uL (2.3-7.9); NEUT % 85.2 % (47.0-73.0); PLATELET COUNT AUTOMATED 424 10*3/uL (130-400); RED CELL DISTRI WIDTH 16.1 % (0-14.5); WHITE BLOOD COUNT 10.8 10*3/uL (4.8-10.8)
[2020-12-29 11:19] LABS: ALBUMIN 3.9 gm/dl (3.1-4.5); ALKALINE PHOSPHATASE 79 U/L (45-117); BUN 7 mg/dl (7-24); CHLORIDE 110 mmol/L (98-107); CREATININE 0.59 mg/dL (0.55-1.02); LIPASE 94 U/L (73-393); SGOT/AST 9 IU/L (3-35); SGPT/ALT 13 U/L (12-78); SODIUM 142 mmol/L (136-145); TOTAL PROTEIN 7.1 gm/dL (6.4-8.2)
[2020-12-29 11:56] LABS: BILIRUBIN Negative (Negative); BLOOD Negative (Negative); CLARITY Turbid (Clear); COLOR Yellow (Yellow); GLUCOSE Negative (Negative); KETONE Trace (Negative); NITRITE Negative (Negative); PH 5.5 (4.5-8.0)
[2020-12-29 12:10] LABS: BACTERIA 2+; CALCIUM OXALATE CRYSTALS 3+; EPITHELIAL CELLS 16-20; LEUKO ESTERASE 1+ (Negative); MUCOUS 2+
[2020-12-29] MEDS ORDERED: ZOFRAN4 MG PO (14:16)
== END 2020-12-29 14:47 | disposition home or self-care (01) ==
LOC: ED 09:29
PROVIDERS: Physician Assistant
DX: R10.32 Left lower quadrant pain (principal); Z88.1 Allergy status to other antibiotic agents; Z88.5 Allergy status to narcotic agent; Z79.2 Long term (current) use of antibiotics; Z79.899 Other long term (current) drug therapy; Z90.89 Acquired absence of other organs; Z98.890 Other specified postprocedural states

== ENCOUNTER 2020-12-31 12:14 | Emergency (ER) | payer OTHER ==
[~2020-12-31] VITALS: Wt 82.1 kg
[2020-12-31 13:40] LABS: BASO # 0.1 10*3/uL (0.0-0.1); BASO % 0.6 % (0.0-1.0); EOS % 0.2 % (1.0-4.0); HEMATOCRIT 35.8 % (37.0-47.0); LYMPH # 1.4 10*3/uL (1.3-4.4); LYMPH % 15.1 % (27.0-41.0); MEAN CELL VOLUME 84.4 fl (81.0-99.0); MEAN CORPUSCULAR HGB 25.9 pg (27.0-31.0); MEAN CORPUSCULAR HGB CONC 30.7 g/dl (33.0-37.0); MEAN PLATELET VOLUME 9.7 fl (9.6-12.3); MONO # 0.6 10*3/uL (0.1-1.0); MONO % 6.3 % (3.0-9.0); NEUT % 77.5 % (47.0-73.0); PLATELET COUNT AUTOMATED 414 10*3/uL (130-400); RED BLOOD COUNT 4.24 10*6/uL (4.10-5.10); RED CELL DISTRI WIDTH 15.9 % (0-14.5)
[2020-12-31 14:00] LABS: ALBUMIN 3.8 gm/dl (3.1-4.5); BUN 7 mg/dl (7-24); CHLORIDE 108 mmol/L (98-107); POTASSIUM 2.9 mmol/L (3.5-5.1); SODIUM 140 mmol/L (136-145)
[2020-12-31 14:04] LABS: ALKALINE PHOSPHATASE 69 U/L (45-117); CREATININE 0.54 mg/dL (0.55-1.02); SGOT/AST 29 IU/L (3-35); SGPT/ALT 24 U/L (12-78); TOTAL PROTEIN 7.2 gm/dL (6.4-8.2)
[2020-12-31 14:06] LABS: B-hCG (QUALITATIVE) NEGATIVE (NEGATIVE)
[2020-12-31 14:22] LABS: BILIRUBIN Negative (Negative); BLOOD Negative (Negative); CLARITY Cloudy (Clear); COLOR Dark Yellow (Yellow); GLUCOSE Negative (Negative); KETONE 4+ (Negative); LEUKO ESTERASE Trace (Negative); NITRITE Negative (Negative); PH 7.5 (4.5-8.0); SPECIFIC GRAVITY >= 1.030 (1.001-1.030)
[2020-12-31 14:38] LABS: BACTERIA 2+; EPITHELIAL CELLS 21-30
[2020-12-31 14:39] LABS: MUCOUS 2+; YEAST TRACE
[2020-12-31] MEDS ORDERED: PHENERGAN25 M3 PO (17:52)
[2020-12-31] MEDS ORDERED: K-TAB20 MEQ PO (17:52)
[2020-12-31] MEDS ORDERED: DICYCLOMINE HCL10 MG PO (17:52)
== END 2020-12-31 18:02 | disposition home or self-care (01) ==
LOC: ED 12:14
PROVIDERS: Physician Assistant
DX: R10.32 Left lower quadrant pain (principal); R11.2 Nausea with vomiting, unspecified; Z98.890 Other specified postprocedural states; Z90.89 Acquired absence of other organs; Z79.899 Other long term (current) drug therapy; Z88.1 Allergy status to other antibiotic agents; Z88.5 Allergy status to narcotic agent

== ENCOUNTER → 2021-03-03 | Outpatient (CLI) | payer OTHER ==
[~2021-03-03] MED LIST changes: +K-TAB20 MEQ PO
== END | disposition home or self-care (01) ==
LOC: COVID19 15:43
PROVIDERS: ATTEND Internal Medicine
DX: Z11.52 Encounter for screening for COVID-19 (principal)

== ENCOUNTER → 2021-03-05 | Outpatient (CLI) | payer OTHER | END | disposition home or self-care (01) | LOC: RAD 15:44 | PROVIDERS: ATTEND Family Medicine | DX: M25.551 Pain in right hip (principal); M25.552 Pain in left hip; M25.571 Pain in right ankle and joints of right foot; E53.9 Vitamin B deficiency, unspecified; M47.816 Spondylosis without myelopathy or radiculopathy, lumbar region ==

== ENCOUNTER 2021-03-20 12:51 | Emergency (ER) | payer OTHER ==
[~2021-03-20] VITALS: Ht 157.4 cm; Wt 81.6 kg
[2021-03-20 13:24] LABS: BILIRUBIN Negative (Negative); BLOOD Trace-Intact (Negative); CLARITY Cloudy (Clear); COLOR Dark Yellow (Yellow); GLUCOSE Negative (Negative); KETONE 1+ (Negative); LEUKO ESTERASE Negative (Negative); NITRITE Negative (Negative); SPECIFIC GRAVITY >= 1.030 (1.001-1.030)
[2021-03-20 13:36] LABS: BASO % 0.3 % (0.0-1.0); HEMATOCRIT 37.9 % (37.0-47.0); LYMPH # 0.9 10*3/uL (1.3-4.4); LYMPH % 7.1 % (27.0-41.0); MEAN CELL VOLUME 84.4 fl (81.0-99.0); MEAN CORPUSCULAR HGB 26.1 pg (27.0-31.0); MEAN CORPUSCULAR HGB CONC 30.9 g/dl (33.0-37.0); MEAN PLATELET VOLUME 8.8 fl (9.6-12.3); MONO # 0.4 10*3/uL (0.1-1.0); MONO % 3.3 % (3.0-9.0); NEUT # 11.2 10*3/uL (2.3-7.9); NEUT % 88.9 % (47.0-73.0); PLATELET COUNT AUTOMATED 502 10*3/uL (130-400); RED BLOOD COUNT 4.49 10*6/uL (4.10-5.10); RED CELL DISTRI WIDTH 16.7 % (0-14.5); WHITE BLOOD COUNT 12.6 10*3/uL (4.8-10.8)
[2021-03-20 13:39] LABS: EPITHELIAL CELLS TNTC; MUCOUS 1+
[2021-03-20 13:48] LABS: BUN 8 mg/dl (7-24); CHLORIDE 106 mmol/L (98-107); CREATININE 0.82 mg/dL (0.55-1.02); POTASSIUM 3.6 mmol/L (3.5-5.1); SODIUM 138 mmol/L (136-145)
[2021-03-20] MEDS ORDERED: Phenergan25 MG PO (16:00)
== END 2021-03-20 16:22 | disposition home or self-care (01) ==
LOC: ED 12:51
PROVIDERS: Nurse Practitioner Family
DX: A08.4 Viral intestinal infection, unspecified (principal); Z88.1 Allergy status to other antibiotic agents; Z88.6 Allergy status to analgesic agent; Z79.899 Other long term (current) drug therapy

== ENCOUNTER 2021-04-16 05:36 | Emergency (ER) | payer OTHER ==
[~2021-04-16] VITALS: Ht 157.4 cm; Wt 77.6 kg
[~2021-04-16 05:36] MED LIST changes: +Phenergan25 MG PO
[2021-04-16 06:19] LABS: BASO # 0.1 10*3/uL (0.0-0.1); BASO % 0.8 % (0.0-1.0); EOS # 0.1 10*3/uL (0.0-0.4); EOS % 1.4 % (1.0-4.0); HEMATOCRIT 36.8 % (37.0-47.0); LYMPH # 1.6 10*3/uL (1.3-4.4); LYMPH % 20.7 % (27.0-41.0); MEAN CELL VOLUME 84.6 fl (81.0-99.0); MEAN CORPUSCULAR HGB 26.4 pg (27.0-31.0); MEAN CORPUSCULAR HGB CONC 31.3 g/dl (33.0-37.0); MEAN PLATELET VOLUME 9.1 fl (9.6-12.3); MONO # 0.5 10*3/uL (0.1-1.0); MONO % 6.6 % (3.0-9.0); NEUT # 5.6 10*3/uL (2.3-7.9); NEUT % 70.1 % (47.0-73.0); PLATELET COUNT AUTOMATED 462 10*3/uL (130-400); RED BLOOD COUNT 4.35 10*6/uL (4.10-5.10); RED CELL DISTRI WIDTH 16.5 % (0-14.5); WHITE BLOOD COUNT 7.9 10*3/uL (4.8-10.8)
[2021-04-16 06:28] LABS: URINE AMPHETAMINES < 1000 (1000ng/ml); URINE BARBITURATES < 200 (200ng/ml); URINE BENZODIAZEPINES < 200 (200ng/ml); URINE CANNABINOIDS (THC) > 50 (50ng/ml); URINE COCAINE < 300 (300ng/ml); URINE METHADONE < 300 (300ng/ml); URINE OPIATES < 300 (300ng/ml)
[2021-04-16 06:33] LABS: URINE PHENCYCLIDINE < 25 (25ng/ml)
[2021-04-16 06:39] LABS: ALBUMIN 3.6 gm/dl (3.1-4.5); ALKALINE PHOSPHATASE 59 U/L (45-117); BUN 10 mg/dl (7-24); CHLORIDE 111 mmol/L (98-107); CREATININE 0.77 mg/dL (0.55-1.02); POTASSIUM 3.1 mmol/L (3.5-5.1); SGOT/AST 6 IU/L (3-35); SGPT/ALT 13 U/L (12-78); SODIUM 141 mmol/L (136-145)
[2021-04-16 06:53] LABS: TOTAL PROTEIN 7.5 gm/dL (6.4-8.2)
[2021-04-16] MEDS ORDERED: PHENERGAN25 M3 PO (07:02)
== END 2021-04-16 07:15 | disposition home or self-care (01) ==
LOC: ED 05:36
PROVIDERS: Internal Medicine
DX: J06.9 Acute upper respiratory infection, unspecified (principal); Z20.822 Contact with and (suspected) exposure to COVID-19; E87.6 Hypokalemia; R11.10 Vomiting, unspecified; F12.90 Cannabis use, unspecified, uncomplicated; Z88.1 Allergy status to other antibiotic agents; Z88.6 Allergy status to analgesic agent; Z79.899 Other long term (current) drug therapy

== ENCOUNTER 2021-06-07 10:36 | Emergency (ER) | payer OTHER ==
[~2021-06-07] VITALS: Wt 73.0 kg
[2021-06-07 11:32] LABS: HEMATOCRIT 33.9 % (37.0-47.0); LYMPH # 0.6 10*3/uL (1.3-4.4); LYMPH % 20.8 % (27.0-41.0); MEAN CELL VOLUME 85.8 fl (81.0-99.0); MEAN CORPUSCULAR HGB 27.1 pg (27.0-31.0); MEAN CORPUSCULAR HGB CONC 31.6 g/dl (33.0-37.0); MEAN PLATELET VOLUME 9.2 fl (9.6-12.3); MONO # 0.3 10*3/uL (0.1-1.0); MONO % 11.1 % (3.0-9.0); NEUT % 67.8 % (47.0-73.0); PLATELET COUNT AUTOMATED 331 10*3/uL (130-400); RED BLOOD COUNT 3.95 10*6/uL (4.10-5.10); RED CELL DISTRI WIDTH 15.6 % (0-14.5)
[2021-06-07 11:33] LABS: BILIRUBIN 1+ (Negative); BLOOD 2+ (Negative); CLARITY Turbid (Clear); COLOR Red (Yellow); GLUCOSE Negative (Negative); KETONE Negative (Negative); NITRITE Positive (Negative); SPECIFIC GRAVITY 1.015 (1.001-1.030); UROBILINOGEN 0.2 E.U./dl (0.0-1.0)
[2021-06-07 11:41] LABS: LEUKO ESTERASE 2+ (Negative)
[2021-06-07 11:42] LABS: RBC TNTC rbc/hpf (0-2)
[2021-06-07 11:48] LABS: ALBUMIN 3.4 gm/dl (3.1-4.5); ALKALINE PHOSPHATASE 73 U/L (45-117); BUN 12 mg/dl (7-24); CHLORIDE 109 mmol/L (98-107); CREATININE 0.72 mg/dL (0.55-1.02); POTASSIUM 3.4 mmol/L (3.5-5.1); SGOT/AST 12 IU/L (3-35); SGPT/ALT 19 U/L (12-78); SODIUM 140 mmol/L (136-145); TOTAL PROTEIN 7.3 gm/dL (6.4-8.2)
[2021-06-07] MEDS ORDERED: MACROBID100 M1 PO (12:22)
[2021-06-07] MEDS ORDERED: Phenergan25 MG PO (12:22)
== END 2021-06-07 12:31 | disposition home or self-care (01) ==
LOC: ED 10:36
PROVIDERS: Nurse Practitioner Family
DX: U07.1 COVID-19 (principal); N39.0 Urinary tract infection, site not specified; Z88.1 Allergy status to other antibiotic agents; Z88.6 Allergy status to analgesic agent; Z79.899 Other long term (current) drug therapy

== ENCOUNTER 2021-08-25 04:07 | Emergency (ER) | payer OTHER ==
[2021-08-25 04:41] LABS: BASO % 0.3 % (0.0-1.0); HEMATOCRIT 34.9 % (37.0-47.0); LYMPH # 1.2 10*3/uL (1.3-4.4); LYMPH % 11.4 % (27.0-41.0); MEAN CELL VOLUME 83.5 fl (81.0-99.0); MEAN CORPUSCULAR HGB 26.8 pg (27.0-31.0); MEAN CORPUSCULAR HGB CONC 32.1 g/dl (33.0-37.0); MEAN PLATELET VOLUME 9.1 fl (9.6-12.3); MONO # 0.6 10*3/uL (0.1-1.0); MONO % 5.5 % (3.0-9.0); NEUT % 82.4 % (47.0-73.0); PLATELET COUNT AUTOMATED 531 10*3/uL (130-400); RED BLOOD COUNT 4.18 10*6/uL (4.10-5.10); RED CELL DISTRI WIDTH 15.8 % (0-14.5); WHITE BLOOD COUNT 10.9 10*3/uL (4.8-10.8)
[2021-08-25 04:56] LABS: ALKALINE PHOSPHATASE 75 U/L (45-117); BUN 10 mg/dl (7-24); CHLORIDE 112 mmol/L (98-107); CREATININE 0.84 mg/dL (0.55-1.02); LIPASE 82 U/L (73-393); POTASSIUM 3.6 mmol/L (3.5-5.1); SGOT/AST 14 IU/L (3-35); SGPT/ALT 21 U/L (12-78); SODIUM 143 mmol/L (136-145); TOTAL PROTEIN 7.5 gm/dL (6.4-8.2)
[2021-08-25 05:28] LABS: BILIRUBIN Negative (Negative); BLOOD Negative (Negative); CLARITY Turbid (Clear); COLOR Yellow (Yellow); GLUCOSE Negative (Negative); KETONE Trace (Negative); LEUKO ESTERASE 1+ (Negative); NITRITE Negative (Negative); SPECIFIC GRAVITY >= 1.030 (1.001-1.030)
[2021-08-25 05:34] LABS: EPITHELIAL CELLS TNTC
[2021-08-25 05:35] LABS: BACTERIA 1+
[2021-08-25 05:41] LABS: URINE AMPHETAMINES < 1000 (1000ng/ml); URINE BARBITURATES < 200 (200ng/ml); URINE BENZODIAZEPINES < 200 (200ng/ml); URINE CANNABINOIDS (THC) > 50 (50ng/ml); URINE COCAINE < 300 (300ng/ml); URINE METHADONE < 300 (300ng/ml); URINE OPIATES > 300 (300ng/ml)
[2021-08-25 05:49] LABS: URINE PHENCYCLIDINE > 25 (25ng/ml)
[2021-08-25] MEDS ORDERED: PHENERGAN25 M3 PO (06:47)
== END 2021-08-25 07:02 | disposition home or self-care (01) ==
LOC: ED 04:07
PROVIDERS: Internal Medicine
DX: R11.15 Cyclical vomiting syndrome unrelated to migraine (principal); Z88.1 Allergy status to other antibiotic agents; Z88.6 Allergy status to analgesic agent; Z79.899 Other long term (current) drug therapy; Z90.89 Acquired absence of other organs; Z98.890 Other specified postprocedural states

== ENCOUNTER 2021-12-25 15:20 | Emergency (ER) | payer OTHER ==
[~2021-12-25] VITALS: Ht 157.4 cm; Wt 68.9 kg
[2021-12-25] MEDS ORDERED: TYLENOL325 M1 PO (17:16)
[2021-12-25] MEDS ORDERED: NAPROXEN250 MG PO (17:16)
== END 2021-12-25 17:34 | disposition home or self-care (01) ==
LOC: ED 15:20
DX: S93.401A Sprain of unspecified ligament of right ankle, initial encounter (principal); E66.9 Obesity, unspecified; K21.9 Gastro-esophageal reflux disease without esophagitis; I10 Essential (primary) hypertension; Z88.1 Allergy status to other antibiotic agents; Z88.8 Allergy status to other drugs, medicaments and biological substances; Z79.899 Other long term (current) drug therapy; Z90.89 Acquired absence of other organs; Z98.890 Other specified postprocedural states; W01.0XXA Fall on same level from slipping, tripping and stumbling without subsequent striking against object, initial encounter; Y93.89 Activity, other specified; Y92.89 Other specified places as the place of occurrence of the external cause; Y99.8 Other external cause status

== ENCOUNTER 2022-01-08 08:03 | Emergency (ER) | payer OTHER ==
[~2022-01-08] VITALS: Wt 68.5 kg
[~2022-01-08 08:03] MED LIST changes: +NAPROXEN250 MG PO; +TYLENOL325 M1 PO
[2022-01-08 08:44] LABS: BASO % 0.5 % (0.0-1.0); EOS # 0.1 10*3/uL (0.0-0.4); EOS % 0.7 % (1.0-4.0); HEMATOCRIT 33.8 % (37.0-47.0); LYMPH # 1.7 10*3/uL (1.3-4.4); LYMPH % 20.1 % (27.0-41.0); MEAN CELL VOLUME 80.9 fl (81.0-99.0); MEAN CORPUSCULAR HGB 24.6 pg (27.0-31.0); MEAN CORPUSCULAR HGB CONC 30.5 g/dl (33.0-37.0); MEAN PLATELET VOLUME 9.5 fl (9.6-12.3); MONO # 0.5 10*3/uL (0.1-1.0); MONO % 6.3 % (3.0-9.0); NEUT # 5.9 10*3/uL (2.3-7.9); NEUT % 72.2 % (47.0-73.0); PLATELET COUNT AUTOMATED 425 10*3/uL (130-400); RED BLOOD COUNT 4.18 10*6/uL (4.10-5.10); RED CELL DISTRI WIDTH 16.4 % (0-14.5); WHITE BLOOD COUNT 8.2 10*3/uL (4.8-10.8)
[2022-01-08 09:12] LABS: ALKALINE PHOSPHATASE 58 U/L (45-117); BUN 8 mg/dl (7-24); CHLORIDE 115 mmol/L (98-107); CREATININE 0.75 mg/dL (0.55-1.02); LIPASE 148 U/L (73-393); POTASSIUM 3.3 mmol/L (3.5-5.1); SGOT/AST 10 IU/L (3-35); SGPT/ALT 11 U/L (12-78); SODIUM 146 mmol/L (136-145); TOTAL PROTEIN 6.9 gm/dL (6.4-8.2)
[2022-01-08 09:14] LABS: B-hCG (QUALITATIVE) NEGATIVE (NEGATIVE)
[2022-01-08 09:26] LABS: BILIRUBIN 1+ (Negative); BLOOD 3+ (Negative); CLARITY Turbid (Clear); COLOR Red (Yellow); GLUCOSE Negative (Negative); KETONE Negative (Negative); NITRITE Negative (Negative); SPECIFIC GRAVITY 1.015 (1.001-1.030); UROBILINOGEN 0.2 E.U./dl (0.0-1.0)
[2022-01-08 09:42] LABS: LEUKO ESTERASE 2+ (Negative)
[2022-01-08 09:51] LABS: BACTERIA 1+; RBC TNTC rbc/hpf (0-2); WBC 21-30 wbc/hpf (0-5)
[2022-01-08 13:06] LABS: BUN 9 mg/dl (7-24); CHLORIDE 117 mmol/L (98-107); CREATININE 0.74 mg/dL (0.55-1.02); SODIUM 143 mmol/L (136-145)
[2022-01-08 13:08] LABS: POTASSIUM 4.4 mmol/L (3.5-5.1)
[2022-01-09] MEDS ORDERED: CIPRO500 MG PO (10:02)
[2022-01-09] MEDS ORDERED: PRILOSEC20 M1 PO (10:02)
[2022-01-09] MEDS ORDERED: NAPROXEN250 MG PO (10:02)
[2022-01-09] MEDS ORDERED: TYLENOL325 M1 PO (10:02)
[2022-01-09] MEDS ORDERED: METRONIDAZOLE500 M1 PO (10:02)
== END 2022-01-08 14:02 | disposition home or self-care (01) ==
LOC: ED 08:03
PROVIDERS: Emergency Medicine
DX: R10.31 Right lower quadrant pain (principal); Z20.822 Contact with and (suspected) exposure to COVID-19; E86.0 Dehydration; R19.7 Diarrhea, unspecified; R11.10 Vomiting, unspecified; K21.9 Gastro-esophageal reflux disease without esophagitis; I10 Essential (primary) hypertension; Z88.1 Allergy status to other antibiotic agents; Z88.8 Allergy status to other drugs, medicaments and biological substances; Z79.899 Other long term (current) drug therapy; Z90.89 Acquired absence of other organs; Z98.890 Other specified postprocedural states

== ENCOUNTER 2022-01-09 07:36 | Emergency (ER) | payer OTHER ==
[~2022-01-09] VITALS: Ht 157.4 cm; Wt 77.6 kg
[2022-01-09 08:15] LABS: BASO # 0.1 10*3/uL (0.0-0.1); BASO % 0.8 % (0.0-1.0); EOS # 0.1 10*3/uL (0.0-0.4); EOS % 0.9 % (1.0-4.0); HEMATOCRIT 32.2 % (37.0-47.0); LYMPH # 1.8 10*3/uL (1.3-4.4); LYMPH % 19.9 % (27.0-41.0); MEAN CELL VOLUME 80.7 fl (81.0-99.0); MEAN CORPUSCULAR HGB 25.1 pg (27.0-31.0); MEAN CORPUSCULAR HGB CONC 31.1 g/dl (33.0-37.0); MEAN PLATELET VOLUME 9.7 fl (9.6-12.3); MONO # 0.6 10*3/uL (0.1-1.0); MONO % 6.7 % (3.0-9.0); NEUT # 6.6 10*3/uL (2.3-7.9); NEUT % 71.4 % (47.0-73.0); PLATELET COUNT AUTOMATED 419 10*3/uL (130-400); RED BLOOD COUNT 3.99 10*6/uL (4.10-5.10); RED CELL DISTRI WIDTH 16.3 % (0-14.5); WHITE BLOOD COUNT 9.2 10*3/uL (4.8-10.8)
[2022-01-09 08:32] LABS: ALKALINE PHOSPHATASE 65 U/L (45-117); BUN 12 mg/dl (7-24); CHLORIDE 116 mmol/L (98-107); CREATININE 0.74 mg/dL (0.55-1.02); LIPASE 212 U/L (73-393); POTASSIUM 3.5 mmol/L (3.5-5.1); SGOT/AST 10 IU/L (3-35); SGPT/ALT 10 U/L (12-78); SODIUM 144 mmol/L (136-145); TOTAL PROTEIN 6.7 gm/dL (6.4-8.2)
[2022-01-09] MEDS ORDERED: METRONIDAZOLE500 M1 PO (10:02)
[2022-01-09] MEDS ORDERED: TYLENOL325 M1 PO (10:02)
[2022-01-09] MEDS ORDERED: NAPROXEN250 MG PO (10:02)
[2022-01-09] MEDS ORDERED: PRILOSEC20 M1 PO (10:02)
[2022-01-09] MEDS ORDERED: CIPRO500 MG PO (10:02)
== END 2022-01-09 10:07 | disposition home or self-care (01) ==
LOC: ED 07:36
PROVIDERS: Emergency Medicine
DX: K52.9 Noninfective gastroenteritis and colitis, unspecified (principal); K21.9 Gastro-esophageal reflux disease without esophagitis; I10 Essential (primary) hypertension; E66.9 Obesity, unspecified; Z88.1 Allergy status to other antibiotic agents; Z88.8 Allergy status to other drugs, medicaments and biological substances; Z79.899 Other long term (current) drug therapy; Z90.89 Acquired absence of other organs

== ENCOUNTER 2022-02-03 10:39 | Emergency (ER) | payer OTHER ==
[~2022-02-03] VITALS: Wt 72.1 kg
[~2022-02-03 10:39] MED LIST changes: +METRONIDAZOLE500 M1 PO
[2022-02-03 11:57] LABS: BILIRUBIN 2+ (Negative); BLOOD 2+ (Negative); CLARITY Turbid (Clear); COLOR Red (Yellow); GLUCOSE Negative (Negative); KETONE Negative (Negative); LEUKO ESTERASE 3+ (Negative); NITRITE Positive (Negative); PH 5.5 (4.5-8.0); SPECIFIC GRAVITY 1.015 (1.001-1.030); UROBILINOGEN 0.2 E.U./dl (0.0-1.0)
[2022-02-03 12:03] LABS: BASO # 0.1 10*3/uL (0.0-0.1); BASO % 0.5 % (0.0-1.0); EOS # 0.1 10*3/uL (0.0-0.4); HEMATOCRIT 34.7 % (37.0-47.0); LYMPH # 1.4 10*3/uL (1.3-4.4); LYMPH % 11.8 % (27.0-41.0); MEAN CELL VOLUME 83.2 fl (81.0-99.0); MEAN CORPUSCULAR HGB 24.9 pg (27.0-31.0); MEAN PLATELET VOLUME 9.9 fl (9.6-12.3); MONO # 0.6 10*3/uL (0.1-1.0); MONO % 4.9 % (3.0-9.0); NEUT # 9.9 10*3/uL (2.3-7.9); NEUT % 81.5 % (47.0-73.0); PLATELET COUNT AUTOMATED 399 10*3/uL (130-400); RED BLOOD COUNT 4.17 10*6/uL (4.10-5.10); RED CELL DISTRI WIDTH 16.3 % (0-14.5); WHITE BLOOD COUNT 12.2 10*3/uL (4.8-10.8)
[2022-02-03 12:08] LABS: BACTERIA 2+; RBC TNTC rbc/hpf (0-2); WBC 21-30 wbc/hpf (0-5)
[2022-02-03 12:19] LABS: ALKALINE PHOSPHATASE 58 U/L (45-117); BUN 11 mg/dl (7-24); CHLORIDE 113 mmol/L (98-107); CREATININE 0.83 mg/dL (0.55-1.02); LIPASE 91 U/L (73-393); POTASSIUM 3.9 mmol/L (3.5-5.1); SGOT/AST 7 IU/L (3-35); SGPT/ALT 11 U/L (12-78); SODIUM 142 mmol/L (136-145); TOTAL PROTEIN 6.9 gm/dL (6.4-8.2)
[2022-02-03 12:22] LABS: B-hCG (QUALITATIVE) NEGATIVE (NEGATIVE)
[2022-02-03] MEDS ORDERED: CIPRO500 MG PO (16:31)
== END 2022-02-03 16:44 | disposition home or self-care (01) ==
LOC: ED 10:39
PROVIDERS: Physician Assistant
DX: N39.0 Urinary tract infection, site not specified (principal); R42 Dizziness and giddiness; Z79.899 Other long term (current) drug therapy; Z88.1 Allergy status to other antibiotic agents; Z88.5 Allergy status to narcotic agent

== ENCOUNTER 2022-04-29 07:04 | Emergency (ER) | payer OTHER ==
[~2022-04-29] VITALS: Ht 157.4 cm; Wt 74.8 kg
[2022-04-29] MEDS ORDERED: CEFDINIR300 MG PO (07:13)
[2022-04-29 07:46] LABS: BASO # 0.1 10*3/uL (0.0-0.1); BASO % 0.5 % (0.0-1.0); EOS # 0.3 10*3/uL (0.0-0.4); EOS % 2.4 % (1.0-4.0); LYMPH # 1.3 10*3/uL (1.3-4.4); LYMPH % 10.8 % (27.0-41.0); MEAN CORPUSCULAR HGB CONC 30.9 g/dl (33.0-37.0); MEAN PLATELET VOLUME 9.1 fl (9.6-12.3); MONO # 0.9 10*3/uL (0.1-1.0); MONO % 7.5 % (3.0-9.0); NEUT # 9.3 10*3/uL (2.3-7.9); NEUT % 78.5 % (47.0-73.0); PLATELET COUNT AUTOMATED 487 10*3/uL (130-400); RED BLOOD COUNT 4.32 10*6/uL (4.10-5.10); RED CELL DISTRI WIDTH 16.4 % (0-14.5); WHITE BLOOD COUNT 11.9 10*3/uL (4.8-10.8)
[2022-04-29 08:03] LABS: ALKALINE PHOSPHATASE 63 U/L (46-116); BUN 8 mg/dl (9-23); CHLORIDE 107 mmol/L (98-107); CREATININE 0.68 mg/dL (0.55-1.02); POTASSIUM 3.4 mmol/L (3.4-5.1); SGPT/ALT 12 U/L (10-49); SODIUM 138 mmol/L (136-145); TOTAL PROTEIN 7.5 gm/dL (6.0-8.0)
[2022-04-29 08:09] LABS: BILIRUBIN Negative (Negative); BLOOD Trace-Lysed (Negative); CLARITY Turbid (Clear); COLOR Dark Yellow (Yellow); GLUCOSE Negative (Negative); KETONE 1+ (Negative); LEUKO ESTERASE 2+ (Negative); NITRITE Negative (Negative); PH 5.5 (4.5-8.0); SPECIFIC GRAVITY >= 1.030 (1.001-1.030)
[2022-04-29 08:24] LABS: EPITHELIAL CELLS 16-20
[2022-04-29 08:25] LABS: BACTERIA 1+; MUCOUS 1+
[2022-04-29 08:26] LABS: B-hCG (QUALITATIVE) NEGATIVE (NEGATIVE)
== END 2022-04-29 11:54 | disposition left against medical advice (07) ==
LOC: ED 07:04
PROVIDERS: Emergency Medicine
DX: R50.9 Fever, unspecified (principal); Z20.822 Contact with and (suspected) exposure to COVID-19; R09.81 Nasal congestion; K21.9 Gastro-esophageal reflux disease without esophagitis; I10 Essential (primary) hypertension; Z88.1 Allergy status to other antibiotic agents; Z88.8 Allergy status to other drugs, medicaments and biological substances; Z79.899 Other long term (current) drug therapy; Z90.89 Acquired absence of other organs; Z98.890 Other specified postprocedural states

== ENCOUNTER 2022-04-29 15:53 | Inpatient (IN) | payer OTHER ==
[~2022-04-29] VITALS: Ht 157.4 cm; Wt 74.8 kg
[~2022-04-29 15:53] MED LIST changes: +CEFDINIR300 MG PO
[2022-04-29 16:45] VITALS: BP 129/70
== END 2022-04-29 22:43 | disposition left against medical advice (07) | DRG 53 ==
LOC: ED 15:53 → EDHOLD 17:40
PROVIDERS: ADMIT Internal Medicine; ATTEND Internal Medicine
DX: R56.9 Unspecified convulsions (principal); I10 Essential (primary) hypertension; G43.909 Migraine, unspecified, not intractable, without status migrainosus; K21.9 Gastro-esophageal reflux disease without esophagitis; G47.00 Insomnia, unspecified; E66.9 Obesity, unspecified; J45.909 Unspecified asthma, uncomplicated; D64.9 Anemia, unspecified; D75.839 Thrombocytosis, unspecified; Z53.29 Procedure and treatment not carried out because of patient's decision for other reasons; R73.9 Hyperglycemia, unspecified; F32.9 Major depressive disorder, single episode, unspecified; Z88.6 Allergy status to analgesic agent; Z88.1 Allergy status to other antibiotic agents; Z83.6 Family history of other diseases of the respiratory system; Z68.30 Body mass index [BMI] 30.0-30.9, adult

== ENCOUNTER 2022-04-30 17:05 | Emergency (ER) | payer OTHER ==
[~2022-04-30] VITALS: Wt 74.8 kg
[2022-04-30 17:50] LABS: BASO % 0.4 % (0.0-1.0); EOS % 0.3 % (1.0-4.0); HEMATOCRIT 36.4 % (37.0-47.0); LYMPH # 1.4 10*3/uL (1.3-4.4); LYMPH % 13.7 % (27.0-41.0); MEAN CELL VOLUME 80.7 fl (81.0-99.0); MEAN CORPUSCULAR HGB 25.1 pg (27.0-31.0); MEAN PLATELET VOLUME 9.4 fl (9.6-12.3); MONO # 0.7 10*3/uL (0.1-1.0); MONO % 7.3 % (3.0-9.0); NEUT # 7.7 10*3/uL (2.3-7.9); NEUT % 78.1 % (47.0-73.0); PLATELET COUNT AUTOMATED 512 10*3/uL (130-400); RED BLOOD COUNT 4.51 10*6/uL (4.10-5.10); RED CELL DISTRI WIDTH 16.2 % (0-14.5); WHITE BLOOD COUNT 9.9 10*3/uL (4.8-10.8)
[2022-04-30 18:18] LABS: ALKALINE PHOSPHATASE 67 U/L (46-116); BUN 7 mg/dl (9-23); CHLORIDE 104 mmol/L (98-107); CREATININE 0.77 mg/dL (0.55-1.02); LIPASE 31 U/L (12-53); POTASSIUM 3.2 mmol/L (3.4-5.1); SODIUM 138 mmol/L (136-145)
[2022-04-30 18:19] LABS: TOTAL PROTEIN 7.8 gm/dL (6.0-8.0)
[2022-04-30 18:25] LABS: SGPT/ALT < 7 U/L (10-49)
[2022-04-30 19:00] LABS: BILIRUBIN Negative (Negative); BLOOD 2+ (Negative); CLARITY Turbid (Clear); COLOR Dark Yellow (Yellow); GLUCOSE Negative (Negative); KETONE 2+ (Negative); LEUKO ESTERASE 1+ (Negative); NITRITE Negative (Negative); PH 5.5 (4.5-8.0); SPECIFIC GRAVITY >= 1.030 (1.001-1.030)
[2022-04-30 20:20] LABS: EPITHELIAL CELLS 41-50
== END 2022-04-30 19:59 | disposition home or self-care (01) ==
LOC: ED 17:05
PROVIDERS: Emergency Medicine
DX: R10.9 Unspecified abdominal pain (principal); K21.9 Gastro-esophageal reflux disease without esophagitis; I10 Essential (primary) hypertension; Z88.1 Allergy status to other antibiotic agents; Z88.8 Allergy status to other drugs, medicaments and biological substances; Z79.899 Other long term (current) drug therapy; Z90.89 Acquired absence of other organs; Z98.51 Tubal ligation status; Z90.49 Acquired absence of other specified parts of digestive tract

== ENCOUNTER 2022-09-28 02:56 | Emergency (ER) | payer OTHER ==
[~2022-09-28] VITALS: Ht 157.4 cm; Wt 79.4 kg
[2022-09-28] MEDS ORDERED: PROVENTIL HFA6.7 GM INH (03:05)
[2022-09-28] MEDS ORDERED: NAPROXEN250 MG PO (07:09)
[2022-09-28] MEDS ORDERED: METHOCARBAMOL500 M1 PO (07:09)
== END 2022-09-28 07:13 | disposition home or self-care (01) ==
LOC: ED 02:56
DX: S30.0XXA Contusion of lower back and pelvis, initial encounter (principal); R10.9 Unspecified abdominal pain; J45.909 Unspecified asthma, uncomplicated; K21.9 Gastro-esophageal reflux disease without esophagitis; F41.9 Anxiety disorder, unspecified; F32.A Depression, unspecified; G43.909 Migraine, unspecified, not intractable, without status migrainosus; Z87.442 Personal history of urinary calculi; F12.90 Cannabis use, unspecified, uncomplicated; Z88.1 Allergy status to other antibiotic agents; Z88.5 Allergy status to narcotic agent; Z90.49 Acquired absence of other specified parts of digestive tract; Z90.89 Acquired absence of other organs; Z98.51 Tubal ligation status; Z98.890 Other specified postprocedural states; W10.9XXA Fall (on) (from) unspecified stairs and steps, initial encounter; Y93.89 Activity, other specified; Y92.009 Unspecified place in unspecified non-institutional (private) residence as the place of occurrence of the external cause; Y99.8 Other external cause status

== ENCOUNTER 2022-11-11 08:09 | Emergency (ER) | payer OTHER ==
[~2022-11-11] VITALS: Ht 157.4 cm; Wt 78.5 kg
[~2022-11-11 08:09] MED LIST changes: +METHOCARBAMOL500 M1 PO; +PROVENTIL HFA6.7 GM INH
[2022-11-11] MEDS ORDERED: CYCLOBENZAPRINE10 MG PO (10:47)
[2022-11-11] MEDS ORDERED: NAPROXEN500 M1 PO (10:47)
== END 2022-11-11 10:55 | disposition home or self-care (01) ==
LOC: ED 08:09
DX: S30.0XXA Contusion of lower back and pelvis, initial encounter (principal); J45.909 Unspecified asthma, uncomplicated; K21.9 Gastro-esophageal reflux disease without esophagitis; F41.9 Anxiety disorder, unspecified; F32.A Depression, unspecified; G43.909 Migraine, unspecified, not intractable, without status migrainosus; Z87.442 Personal history of urinary calculi; Z88.1 Allergy status to other antibiotic agents; Z88.5 Allergy status to narcotic agent; Z90.49 Acquired absence of other specified parts of digestive tract; Z90.89 Acquired absence of other organs; Z98.51 Tubal ligation status; Z98.890 Other specified postprocedural states; F12.90 Cannabis use, unspecified, uncomplicated; W01.10XA Fall on same level from slipping, tripping and stumbling with subsequent striking against unspecified object, initial encounter; Y93.89 Activity, other specified; Y92.89 Other specified places as the place of occurrence of the external cause; Y99.8 Other external cause status

== ENCOUNTER 2022-11-21 06:55 | Emergency (ER) | payer OTHER ==
[~2022-11-21] VITALS: Ht 157.4 cm; Wt 63.5 kg
[~2022-11-21 06:55] MED LIST changes: +CYCLOBENZAPRINE10 MG PO; +NAPROXEN500 M1 PO
[2022-11-21 07:45] LABS: BASO # 0.1 10*3/uL (0.0-0.1); BASO % 0.4 % (0.0-1.0); EOS # 0.2 10*3/uL (0.0-0.4); EOS % 1.7 % (1.0-4.0); HEMATOCRIT 34.1 % (37.0-47.0); LYMPH # 1.5 10*3/uL (1.3-4.4); LYMPH % 12.5 % (27.0-41.0); MEAN CELL VOLUME 83.4 fl (81.0-99.0); MEAN CORPUSCULAR HGB 26.4 pg (27.0-31.0); MEAN CORPUSCULAR HGB CONC 31.7 g/dl (33.0-37.0); MEAN PLATELET VOLUME 9.2 fl (9.6-12.3); MONO # 0.8 10*3/uL (0.1-1.0); NEUT # 9.3 10*3/uL (2.3-7.9); NEUT % 78.1 % (47.0-73.0); PLATELET COUNT AUTOMATED 556 10*3/uL (130-400); RED BLOOD COUNT 4.09 10*6/uL (4.10-5.10); RED CELL DISTRI WIDTH 16.4 % (0-14.5); WHITE BLOOD COUNT 11.8 10*3/uL (4.8-10.8)
[2022-11-21 08:00] LABS: INTERNATIONAL NORM RATIO 1.4 (2.0-3.5)
[2022-11-21 08:07] LABS: ALKALINE PHOSPHATASE 69 U/L (46-116); BUN 7 mg/dl (9-23); CHLORIDE 109 mmol/L (98-107); LIPASE 29 U/L (12-53); POTASSIUM 2.8 mmol/L (3.4-5.1); TOTAL PROTEIN 7.2 gm/dL (6.0-8.0)
[2022-11-21 08:09] LABS: SGPT/ALT < 7 U/L (10-49)
[2022-11-21 11:06] LABS: BILIRUBIN Negative (Negative); BLOOD Trace-Lysed (Negative); CLARITY Clear (Clear); COLOR Yellow (Yellow); GLUCOSE Negative (Negative); KETONE 2+ (Negative); LEUKO ESTERASE Negative (Negative); NITRITE Negative (Negative); SPECIFIC GRAVITY >= 1.030 (1.001-1.030)
[2022-11-21 11:26] LABS: BACTERIA TRACE; CALCIUM OXALATE CRYSTALS 1+; EPITHELIAL CELLS 41-50; WBC 0-2 wbc/hpf (0-5)
[2022-11-21] MEDS ORDERED: ONDANSETRON4 MG SL (11:35)
== END 2022-11-21 18:48 | disposition home or self-care (01) ==
LOC: ED 06:55
PROVIDERS: Emergency Medicine
DX: R11.2 Nausea with vomiting, unspecified (principal); T40.715A Adverse effect of cannabis, initial encounter; J45.909 Unspecified asthma, uncomplicated; K21.9 Gastro-esophageal reflux disease without esophagitis; F41.9 Anxiety disorder, unspecified; F32.A Depression, unspecified; G43.909 Migraine, unspecified, not intractable, without status migrainosus; Z87.442 Personal history of urinary calculi; Z88.1 Allergy status to other antibiotic agents; Z88.5 Allergy status to narcotic agent; Z90.49 Acquired absence of other specified parts of digestive tract; Z98.51 Tubal ligation status; Z90.89 Acquired absence of other organs; Z98.890 Other specified postprocedural states; Y92.89 Other specified places as the place of occurrence of the external cause

== ENCOUNTER 2022-12-14 04:36 | Inpatient (IN) | payer OTHER ==
[~2022-12-14] VITALS: Ht 157.4 cm; Wt 59.9 kg
[~2022-12-14 04:36] MED LIST changes: +ONDANSETRON4 MG SL
[2022-12-14 04:46] VITALS: BP 138/89
[2022-12-14 05:59] LABS: HEMATOCRIT 36.8 % (37.0-47.0); MEAN CELL VOLUME 84.6 fl (81.0-99.0); MEAN CORPUSCULAR HGB 26.2 pg (27.0-31.0); MEAN PLATELET VOLUME 8.9 fl (9.6-12.3); PLATELET COUNT AUTOMATED 688 10*3/uL (130-400); RED BLOOD COUNT 4.35 10*6/uL (4.10-5.10); RED CELL DISTRI WIDTH 15.8 % (0-14.5); WHITE BLOOD COUNT 15.9 10*3/uL (4.8-10.8)
[2022-12-14 06:01] LABS: MANUAL DIFF REFLEX YES
[2022-12-14 06:39] LABS: BASOPHILS 1 % (0-1); PLATELET SUFFICIENCY HIGH (NORMAL); TOTAL CELLS COUNTED 100 #CELLS
[2022-12-14 06:48] LABS: ALKALINE PHOSPHATASE 79 U/L (46-116); BUN 7 mg/dl (9-23); CHLORIDE 106 mmol/L (98-107); POTASSIUM 3.5 mmol/L (3.4-5.1); TOTAL PROTEIN 7.7 gm/dL (6.0-8.0)
[2022-12-14 06:49] LABS: SGPT/ALT < 7 U/L (10-49)
[2022-12-14 08:56] LABS: BILIRUBIN Negative (Negative); BLOOD 2+ (Negative); CLARITY Turbid (Clear); COLOR Dark Yellow (Yellow); GLUCOSE Negative (Negative); KETONE Negative (Negative); LEUKO ESTERASE Trace (Negative); NITRITE Positive (Negative); SPECIFIC GRAVITY 1.025 (1.001-1.030)
[2022-12-14 09:23] LABS: BACTERIA 3+; RBC 16-20 rbc/hpf (0-2)
[2022-12-14 09:24] LABS: MUCOUS 1+
[2022-12-14 09:38] VITALS: BP 101/76
[2022-12-14 09:39] VITALS: BP 101/76
[2022-12-14 12:40] VITALS: BP 110/82
[2022-12-14] MEDS ORDERED: OMNICEF300 MG PO ×2 (15:29)
[2022-12-14 15:40] LABS: URINE AMPHETAMINES Negative (1000ng/ml); URINE BARBITURATES Negative (200ng/ml); URINE BENZODIAZEPINES Negative (200ng/ml); URINE CANNABINOIDS (THC) Positive (50ng/ml); URINE COCAINE Positive (300ng/ml); URINE METHADONE Negative (300ng/ml); URINE OPIATES Negative (300ng/ml); URINE PHENCYCLIDINE Negative (25ng/ml)
[2022-12-15] MEDS ORDERED: VENT7GM INH (06:23)
[2022-12-15] MEDS ORDERED: Motrin,Rufen800 MG PO (11:52)
[2022-12-15] MEDS ORDERED: ONDANSETRON4 MG SL (11:52)
== END 2022-12-14 16:10 | disposition left against medical advice (07) | DRG 720 ==
LOC: ED 04:36 → EDHOLD 11:07
PROVIDERS: Emergency Medicine; Internal Medicine; ADMIT Internal Medicine; ATTEND Internal Medicine
DX: A41.9 Sepsis, unspecified organism (principal); K21.9 Gastro-esophageal reflux disease without esophagitis; I10 Essential (primary) hypertension; G47.00 Insomnia, unspecified; R31.9 Hematuria, unspecified; D64.9 Anemia, unspecified; D75.839 Thrombocytosis, unspecified; Z53.29 Procedure and treatment not carried out because of patient's decision for other reasons; G89.29 Other chronic pain; F32.9 Major depressive disorder, single episode, unspecified; N30.90 Cystitis, unspecified without hematuria; Z90.49 Acquired absence of other specified parts of digestive tract; Z98.51 Tubal ligation status; Z82.5 Family history of asthma and other chronic lower respiratory diseases; Z88.5 Allergy status to narcotic agent; Z88.1 Allergy status to other antibiotic agents; Z79.899 Other long term (current) drug therapy

== ENCOUNTER 2022-12-15 06:13 | Emergency (ER) | payer OTHER ==
[~2022-12-15] VITALS: Ht 157.4 cm; Wt 59.9 kg
[~2022-12-15 06:13] MED LIST changes: +OMNICEF300 MG PO
[2022-12-15] MEDS ORDERED: VENT7GM INH (06:23)
[2022-12-15 07:07] LABS: BASO % 0.3 % (0.0-1.0); EOS # 0.3 10*3/uL (0.0-0.4); EOS % 2.3 % (1.0-4.0); HEMATOCRIT 31.5 % (37.0-47.0); LYMPH # 1.9 10*3/uL (1.3-4.4); LYMPH % 14.8 % (27.0-41.0); MEAN CELL VOLUME 84.9 fl (81.0-99.0); MEAN CORPUSCULAR HGB 26.4 pg (27.0-31.0); MEAN CORPUSCULAR HGB CONC 31.1 g/dl (33.0-37.0); MEAN PLATELET VOLUME 8.8 fl (9.6-12.3); MONO # 0.9 10*3/uL (0.1-1.0); MONO % 7.2 % (3.0-9.0); NEUT # 9.5 10*3/uL (2.3-7.9); NEUT % 75.1 % (47.0-73.0); PLATELET COUNT AUTOMATED 595 10*3/uL (130-400); RED BLOOD COUNT 3.71 10*6/uL (4.10-5.10); RED CELL DISTRI WIDTH 15.9 % (0-14.5); WHITE BLOOD COUNT 12.7 10*3/uL (4.8-10.8)
[2022-12-15 07:19] LABS: ACT PARTIAL THROMBO TIME 30.6 SECONDS (20.0-32.1); INTERNATIONAL NORM RATIO 1.2 (2.0-3.5)
[2022-12-15 07:30] LABS: ALKALINE PHOSPHATASE 70 U/L (46-116); CHLORIDE 109 mmol/L (98-107); LIPASE 32 U/L (12-53); POTASSIUM 3.3 mmol/L (3.4-5.1); TOTAL PROTEIN 6.8 gm/dL (6.0-8.0)
[2022-12-15 07:31] LABS: BUN < 5 mg/dl (9-23); SGPT/ALT < 7 U/L (10-49)
[2022-12-15] MEDS ORDERED: ONDANSETRON4 MG SL (11:52)
[2022-12-15] MEDS ORDERED: Motrin,Rufen800 MG PO (11:52)
== END 2022-12-15 12:11 | disposition home or self-care (01) ==
LOC: ED 06:13
PROVIDERS: Internal Medicine
DX: N39.0 Urinary tract infection, site not specified (principal); R10.9 Unspecified abdominal pain; G43.909 Migraine, unspecified, not intractable, without status migrainosus; J45.909 Unspecified asthma, uncomplicated; K21.9 Gastro-esophageal reflux disease without esophagitis; F41.9 Anxiety disorder, unspecified; F32.A Depression, unspecified; Z87.442 Personal history of urinary calculi; Z88.1 Allergy status to other antibiotic agents; Z88.5 Allergy status to narcotic agent; Z90.49 Acquired absence of other specified parts of digestive tract; Z90.89 Acquired absence of other organs; Z98.51 Tubal ligation status; Z98.890 Other specified postprocedural states; Z87.891 Personal history of nicotine dependence

== ENCOUNTER 2023-10-23 19:01 | Emergency (ER) | payer OTHER ==
[~2023-10-23] VITALS: Ht 157.5 cm; Wt 53.1 kg
[~2023-10-23 19:01] MED LIST changes: +Motrin,Rufen800 MG PO; +VENT7GM INH
[2023-10-23] MEDS ORDERED: CEPHALEXIN 500 MG CAP PO ONE (19:15)
[2023-10-23] MEDS ORDERED: CEPHALEXIN500 M1 PO (19:18)
== END 2023-10-23 19:26 | disposition home or self-care (01) ==
LOC: ED 19:01
DX: L03.116 Cellulitis of left lower limb (principal); G43.909 Migraine, unspecified, not intractable, without status migrainosus; J45.909 Unspecified asthma, uncomplicated; K21.9 Gastro-esophageal reflux disease without esophagitis; F41.9 Anxiety disorder, unspecified; F32.A Depression, unspecified; Z87.442 Personal history of urinary calculi; Z88.5 Allergy status to narcotic agent; Z88.8 Allergy status to other drugs, medicaments and biological substances; Z90.49 Acquired absence of other specified parts of digestive tract; Z90.89 Acquired absence of other organs; Z98.51 Tubal ligation status; Z98.890 Other specified postprocedural states

== ENCOUNTER → 2023-12-15 | Outpatient (CLI) | payer OTHER ==
[2023-12-15 11:44] LABS: BASO # 0.1 10*3/uL (0.0-0.1); BASO % 0.9 % (0.0-1.0); EOS # 0.7 10*3/uL (0.0-0.4); EOS % 8.4 % (1.0-4.0); HEMATOCRIT 37.9 % (37.0-47.0); LYMPH # 1.7 10*3/uL (1.3-4.4); LYMPH % 21.4 % (27.0-41.0); MEAN CELL VOLUME 90.5 fl (81.0-99.0); MEAN CORPUSCULAR HGB 29.1 pg (27.0-31.0); MEAN CORPUSCULAR HGB CONC 32.2 g/dl (33.0-37.0); MEAN PLATELET VOLUME 8.9 fl (9.6-12.3); MONO # 0.4 10*3/uL (0.1-1.0); MONO % 5.7 % (3.0-9.0); NEUT # 4.9 10*3/uL (2.3-7.9); NEUT % 63.3 % (47.0-73.0); PLATELET COUNT AUTOMATED 358 10*3/uL (130-400); RED BLOOD COUNT 4.19 10*6/uL (4.10-5.10); RED CELL DISTRI WIDTH 14.6 % (0-14.5); RETICULOCYTE % 0.73 % (0.50-2.50); WHITE BLOOD COUNT 7.7 10*3/uL (4.8-10.8)
[2023-12-15 11:47] LABS: BILIRUBIN Negative (Negative); BLOOD Negative (Negative); CLARITY Cloudy (Clear); COLOR Yellow (Yellow); GLUCOSE Negative (Negative); KETONE Negative (Negative); LEUKO ESTERASE Trace (Negative); NITRITE Negative (Negative); PH 7.5 (4.5-8.0); SPECIFIC GRAVITY <= 1.005 (1.001-1.030); UROBILINOGEN 0.2 E.U./dl (0.0-1.0)
[2023-12-15 12:10] LABS: ALKALINE PHOSPHATASE 86 U/L (46-116); BUN 9 mg/dl (9-23); CHLORIDE 106 mmol/L (98-107); CHOLESTEROL 173 mg/dL (<200); GAMMA GLUTAMYL TRANSPEPTIDASE 31 U/L (0-73); LDL CHOLESTEROL 88 mg/dL (9-159); POTASSIUM 4.3 mmol/L (3.4-5.1); T3 UPTAKE 25.3 % (22.4-36.7); THYROXINE (T4) TOTAL 4.8 ug/dl (4.5-10.9); TOTAL PROTEIN 6.7 gm/dL (6.0-8.0); TRIGLYCERIDES 120 mg/dl (<150); URIC ACID 4.6 mg/dL (3.1-7.8)
[2023-12-15 12:13] LABS: SGPT/ALT < 7 U/L (5-49)
[2023-12-15 12:40] LABS: BACTERIA 2+; EPITHELIAL CELLS 31-40
[2023-12-16 12:08] LABS: ANTI-DSDNA ANTIBODIES 1 IU/mL (0-9)
== END | disposition home or self-care (01) ==
LOC: LAB 11:05
PROVIDERS: ATTEND Family Medicine
DX: E78.5 Hyperlipidemia, unspecified (principal); R53.83 Other fatigue; R79.89 Other specified abnormal findings of blood chemistry; E55.9 Vitamin D deficiency, unspecified

== ENCOUNTER 2023-12-19 09:08 | Emergency (ER) | payer OTHER ==
[~2023-12-19] VITALS: Ht 157.4 cm; Wt 59.0 kg
== END 2023-12-19 09:54 | disposition left against medical advice (07) ==
LOC: ED 09:08
DX: G43.909 Migraine, unspecified, not intractable, without status migrainosus (principal); J45.909 Unspecified asthma, uncomplicated; K21.9 Gastro-esophageal reflux disease without esophagitis; F41.9 Anxiety disorder, unspecified; F32.A Depression, unspecified; Z87.442 Personal history of urinary calculi; Z88.5 Allergy status to narcotic agent; Z88.8 Allergy status to other drugs, medicaments and biological substances; Z53.21 Procedure and treatment not carried out due to patient leaving prior to being seen by health care provider

== ENCOUNTER 2024-04-12 13:07 | Emergency (ER) | payer OTHER ==
[~2024-04-12] VITALS: Ht 157.4 cm; Wt 49.9 kg
[2024-04-12] MEDS ORDERED: Amoxicillin/Clavulanate Pota 875 MG TAB PO ONE (13:30)
[2024-04-12] MEDS ORDERED: AMOX-CLAV 875-1 EACH PO (13:33)
== END 2024-04-12 13:43 | disposition home or self-care (01) ==
LOC: ED 13:07
DX: H66.93 Otitis media, unspecified, bilateral (principal); G43.909 Migraine, unspecified, not intractable, without status migrainosus; J45.909 Unspecified asthma, uncomplicated; K21.9 Gastro-esophageal reflux disease without esophagitis; F41.9 Anxiety disorder, unspecified; F32.A Depression, unspecified; Z87.442 Personal history of urinary calculi; Z88.1 Allergy status to other antibiotic agents; Z88.5 Allergy status to narcotic agent; Z90.49 Acquired absence of other specified parts of digestive tract; Z98.890 Other specified postprocedural states; Z90.89 Acquired absence of other organs; Z98.51 Tubal ligation status

== ENCOUNTER 2024-05-27 12:09 | Emergency (ER) | payer OTHER ==
[~2024-05-27] VITALS: Ht 157.4 cm; Wt 40.8 kg
[~2024-05-27 12:09] MED LIST changes: +AMOX-CLAV 875-1 EACH PO
[2024-05-27] MEDS ORDERED: Ondansetron Hydrochloride 4 MG TAB SL ONE (12:25)
[2024-05-27] MEDS ORDERED: Tdap Vaccine 0.5 ML SYR (Adult Vaccine) IM ONE (12:25)
[2024-05-27] MEDS ORDERED: Acetaminophen/Hydrocodone 5 MG/325 MG TABLET PO ONE ×2 (12:25→13:20)
[2024-05-27] MEDS ORDERED: Amoxicillin/Clavulanate Pota 875 MG TAB PO ONE ×2 (12:25→13:20)
[2024-05-27] MEDS ORDERED: HYDROCODONE-AC1 EAC1 PO (13:16)
[2024-05-27] MEDS ORDERED: Ondansetron4 MG PO (13:16)
[2024-05-27] MEDS ORDERED: AMOX-CLAV 875-1 EACH PO (13:16)
[2024-05-27] MEDS ORDERED: IBU800 MG PO (13:16)
[2024-05-27] MEDS ORDERED: IBUPROFEN 800 MG TAB PO ONE (13:25)
== END 2024-05-27 13:28 | disposition home or self-care (01) ==
LOC: ED 12:09
DX: S01.412A Laceration without foreign body of left cheek and temporomandibular area, initial encounter (principal); S01.83XA Puncture wound without foreign body of other part of head, initial encounter; K21.9 Gastro-esophageal reflux disease without esophagitis; I10 Essential (primary) hypertension; D64.9 Anemia, unspecified; G43.909 Migraine, unspecified, not intractable, without status migrainosus; J45.909 Unspecified asthma, uncomplicated; F41.9 Anxiety disorder, unspecified; F32.A Depression, unspecified; Z87.442 Personal history of urinary calculi; Z88.1 Allergy status to other antibiotic agents; Z88.5 Allergy status to narcotic agent; Z90.49 Acquired absence of other specified parts of digestive tract; Z90.89 Acquired absence of other organs; Z98.51 Tubal ligation status; Z98.890 Other specified postprocedural states; W54.0XXA Bitten by dog, initial encounter; Y93.89 Activity, other specified; Y92.009 Unspecified place in unspecified non-institutional (private) residence as the place of occurrence of the external cause; Y99.8 Other external cause status

== ENCOUNTER → 2025-01-24 | Outpatient (CLI) | payer OTHER ==
[~2025-01-24] MED LIST changes: +HYDROCODONE-AC1 EAC1 PO; +IBU800 MG PO; +Ondansetron4 MG PO
[2025-01-24 12:28] LABS: BASO # 0.1 10*3/uL (0.0-0.1); BASO % 1.1 % (0.0-1.0); EOS # 0.3 10*3/uL (0.0-0.4); EOS % 3.8 % (1.0-4.0); MEAN CELL VOLUME 87.2 fl (81.0-99.0); MEAN CORPUSCULAR HGB 26.3 pg (27.0-31.0); MEAN PLATELET VOLUME 9.6 fl (9.6-12.3); MONO # 0.4 10*3/uL (0.1-1.0); MONO % 6.0 % (3.0-9.0); NEUT # 4.6 10*3/uL (2.3-7.9); NEUT % 61.7 % (47.0-73.0); NUCLEATED RED BLOOD CELL 0.0 % (0.0-0.0); NUCLEATED RED BLOOD CELL 0.0 10*3/uL (0.0-0.0); PLATELET COUNT AUTOMATED 467 10*3/uL (130-400); RED CELL DISTRI WIDTH 14.5 % (0-14.5); RETICULOCYTE % 1.04 % (0.50-2.50)
[2025-01-24 12:30] LABS: BILIRUBIN Negative (Negative); BLOOD Negative (Negative); CLARITY Cloudy (Clear); COLOR Yellow (Yellow); KETONE Trace (Negative); LEUKO ESTERASE 2+ (Negative); NITRITE Negative (Negative); PH 6.5 (4.5-8.0); SPECIFIC GRAVITY 1.020 (1.001-1.030); UROBILINOGEN 1.0 E.U./dl (0.0-1.0)
[2025-01-24 12:57] LABS: BUN 9 mg/dl (9-23); GAMMA GLUTAMYL TRANSFERASE 18 U/L (0-38); LDL CHOLESTEROL 82 mg/dL (9-159); T3 UPTAKE 32.2 % (22.4-36.7); THYROXINE (T4) TOTAL 5.1 ug/dl (4.5-10.9)
[2025-01-24 12:59] LABS: VITAMIN D, 25-HYDROXY 25.5 ng/mL (30-100)
[2025-01-24 13:00] LABS: BACTERIA 4+; EPITHELIAL CELLS 41-50; WBC 31-40 wbc/hpf (0-5)
[2025-01-24 13:04] LABS: SGPT/ALT < 7 U/L (5-49)
[2025-01-25 14:07] LABS: ANTI-DSDNA ANTIBODIES <1 IU/mL (0-9)
== END ==
LOC: LAB 11:33
PROVIDERS: ATTEND Family Medicine
DX: M19.011 Primary osteoarthritis, right shoulder (principal); M43.8X4 Other specified deforming dorsopathies, thoracic region; E78.5 Hyperlipidemia, unspecified; E55.9 Vitamin D deficiency, unspecified; R79.89 Other specified abnormal findings of blood chemistry; R53.83 Other fatigue

== ENCOUNTER 2025-03-03 20:19 | Emergency (ER) | payer OTHER ==
[~2025-03-03] VITALS: Ht 162.5 cm; Wt 63.5 kg
[2025-03-03] MEDS ORDERED: Cyclobenzaprine Hydrochlorid 10 MG TAB PO ONE (20:40)
[2025-03-03] MEDS ORDERED: PREDNISONE10 M1 PO (23:41)
[2025-03-03] MEDS ORDERED: CYCLOBENZAPRINE10 MG PO (23:41)
== END 2025-03-03 23:52 | disposition home or self-care (01) ==
LOC: ED 20:19
DX: S16.1XXA Strain of muscle, fascia and tendon at neck level, initial encounter (principal); R07.89 Other chest pain; R05.9 Cough, unspecified; H57.11 Ocular pain, right eye; J45.909 Unspecified asthma, uncomplicated; K21.9 Gastro-esophageal reflux disease without esophagitis; I10 Essential (primary) hypertension; F32.A Depression, unspecified; G43.909 Migraine, unspecified, not intractable, without status migrainosus; F17.290 Nicotine dependence, other tobacco product, uncomplicated; Z88.1 Allergy status to other antibiotic agents; Z88.5 Allergy status to narcotic agent; Z79.899 Other long term (current) drug therapy; Z90.49 Acquired absence of other specified parts of digestive tract; Z90.89 Acquired absence of other organs; X58.XXXA Exposure to other specified factors, initial encounter; Y93.89 Activity, other specified; Y92.89 Other specified places as the place of occurrence of the external cause; Y99.8 Other external cause status

== ENCOUNTER 2025-03-14 16:49 | Emergency (ER) | payer OTHER ==
[~2025-03-14 16:49] MED LIST changes: +PREDNISONE10 M1 PO
[2025-03-14] MEDS ORDERED: Ondansetron Hydrochloride 4 MG/2 ML VIAL IV ONE (17:05)
[2025-03-14] MEDS ORDERED: SODIUM CHLORIDE 0.9% 1,000 ML IV ONE (17:05)
[2025-03-14 17:15] LABS: BASO # 0.1 10*3/uL (0.0-0.1); BASO % 0.6 % (0.0-1.0); EOS # 0.2 10*3/uL (0.0-0.4); EOS % 1.6 % (1.0-4.0); MEAN CELL VOLUME 82.6 fl (81.0-99.0); MEAN CORPUSCULAR HGB 25.6 pg (27.0-31.0); MEAN PLATELET VOLUME 8.9 fl (9.6-12.3); MONO # 1.1 10*3/uL (0.1-1.0); MONO % 7.7 % (3.0-9.0); NEUT # 11.4 10*3/uL (2.3-7.9); NEUT % 80.9 % (47.0-73.0); NUCLEATED RED BLOOD CELL 0.0 % (0.0-0.0); NUCLEATED RED BLOOD CELL 0.0 10*3/uL (0.0-0.0); PLATELET COUNT AUTOMATED 500 10*3/uL (130-400); RED CELL DISTRI WIDTH 15.6 % (0-14.5)
[2025-03-14 17:34] LABS: BUN 9 mg/dl (9-23)
[2025-03-14] MEDS ORDERED: Ondansetron4 MG PO (17:49)
[2025-03-14] MEDS ORDERED: LEVOFLOXACIN750 M2 PO (17:49)
== END 2025-03-14 17:54 | disposition home or self-care (01) ==
LOC: ED 16:49
PROVIDERS: Emergency Medicine
DX: J40 Bronchitis, not specified as acute or chronic (principal); R11.2 Nausea with vomiting, unspecified; G43.909 Migraine, unspecified, not intractable, without status migrainosus; Z88.1 Allergy status to other antibiotic agents; Z88.5 Allergy status to narcotic agent; Z79.899 Other long term (current) drug therapy; Z90.49 Acquired absence of other specified parts of digestive tract; Z90.89 Acquired absence of other organs; Z98.890 Other specified postprocedural states

== ENCOUNTER → 2025-05-16 | Outpatient (CLI) | payer OTHER ==
[~2025-05-16] MED LIST changes: +LEVOFLOXACIN750 M2 PO
[2025-05-16 15:29] LABS: BASO # 0.1 10*3/uL (0.0-0.1); BASO % 0.5 % (0.0-1.0); BILIRUBIN Negative (Negative); BLOOD 3+ (Negative); CLARITY Cloudy (Clear); COLOR Orange (Yellow); EOS # 0.5 10*3/uL (0.0-0.4); EOS % 5.5 % (1.0-4.0); KETONE Negative (Negative); LEUKO ESTERASE 2+ (Negative); MEAN CELL VOLUME 81.8 fl (81.0-99.0); MEAN CORPUSCULAR HGB 24.0 pg (27.0-31.0); MEAN PLATELET VOLUME 8.2 fl (9.6-12.3); MONO # 0.6 10*3/uL (0.1-1.0); MONO % 6.4 % (3.0-9.0); NEUT # 6.2 10*3/uL (2.3-7.9); NEUT % 67.1 % (47.0-73.0); NITRITE Negative (Negative); NUCLEATED RED BLOOD CELL 0.0 % (0.0-0.0); NUCLEATED RED BLOOD CELL 0.0 10*3/uL (0.0-0.0); PH 5.5 (4.5-8.0); PLATELET COUNT AUTOMATED 574 10*3/uL (130-400); RED CELL DISTRI WIDTH 15.9 % (0-14.5); RETICULOCYTE % 0.96 % (0.50-2.50); SPECIFIC GRAVITY 1.020 (1.001-1.030); UROBILINOGEN 0.2 E.U./dl (0.0-1.0)
[2025-05-16 15:38] LABS: BACTERIA 4+; EPITHELIAL CELLS 41-50; RBC 16-20 rbc/hpf (0-2)
[2025-05-16 16:12] LABS: VITAMIN D, 25-HYDROXY 22.6 ng/mL (30-100)
[2025-05-16 16:34] LABS: BUN 12 mg/dl (9-23); GAMMA GLUTAMYL TRANSFERASE 25 U/L (0-38); LDL CHOLESTEROL 91 mg/dL (9-159); T3 UPTAKE 28.6 % (22.4-36.7); THYROXINE (T4) TOTAL 5.9 ug/dl (4.5-10.9)
[2025-05-16 16:35] LABS: BETA-HCG, QUANT < 3.0 mIU/mL (3-10); SGPT/ALT < 7 U/L (5-49)
== END | disposition home or self-care (01) ==
LOC: LAB 15:04
PROVIDERS: ATTEND Family Medicine
DX: R79.89 Other specified abnormal findings of blood chemistry (principal); E78.5 Hyperlipidemia, unspecified; E55.9 Vitamin D deficiency, unspecified; R53.83 Other fatigue